=== PATIENT | female | born 1960 | race Caucasian/White ===

== ENCOUNTER 2017-03-25 17:34 | Emergency (ER) | payer SELFPAY ==
--- NOTE | 2017-03-25 19:24 | RAD ---
TWO VIEW CHEST 03/25/17 INDICATION: Cough. FINDINGS: There is bilateral pleural fluid. Interstitial opacities of each lung are present and there are patc hy alveolar opacities involving the right lung in a perihilar distribution in the left lower lung. T he cardiac silhouette and pulmonary vasculature are prominent. IMPRESSION: 1. Findings most consistent with decompensated CHF. Alveolar and interstitial opacities may rel ate to edema, although superimposed pneumonia not excluded. 2. Bilateral pleural effusions are present. Continued followup to resolution is recommended. POS: [facility]
== END 2017-03-25 20:02 | disposition home or self-care (01) ==
LOC: ERS 17:34
DX: J18.9 Pneumonia, unspecified organism (principal); I11.0 Hypertensive heart disease with heart failure; I50.9 Heart failure, unspecified; E03.9 Hypothyroidism, unspecified; F41.9 Anxiety disorder, unspecified
CPT/HCPCS: 71020; 94640; J7620

== ENCOUNTER 2017-05-04 14:24 | Inpatient (IN) | payer OTHER, SELFPAY ==
[2017-05-04 15:14] LABS: Bilirubin Negative (Negative); Blood, Urine Negative (Negative); Glucose, Urine (Dipstick) Negative (Negative); Ketone, Urine Negative (Negative); Nitrite Negative (Negative); Protein, Urine (Dipstick) Negative (Neg-Trace)
--- NOTE | 2017-05-04 15:20 | RAD ---
CHEST ONE VIEW: History: Cough. Rheumatoid arthritis. Comparison: 03-25-17 FINDINGS: Cardiac silhouette remains magnified and enlarged. Pulmonary vasculature is slightly less engorged th an on the previous exam. Mediastinum is midline. Patchy infiltrate at the left base and left pleural fluid have improved slightly. IMPRESSION: Pulmonary edema is less pronounced than on the 03-25-17 study. No new abnormalities are demonstrated. POS: [facility]
[2017-05-04 15:56] LABS: #Eosinphils 0.1 thou/uL (0.0-0.7); #Lymphocytes 1.1 thou/uL (1.20-3.40); #Monocytes 0.8 thou/uL (0.11-0.59); #Neutrophils 5.6 thou/uL (1.40-6.50); %Basophils 0.2 % (0.0-1.0); %Eosinophils 1.6 % (0.0-10.0); %Lymphocytes 14.5 % (21.0-51.0); %Monocytes 10.2 % (0.0-10.0); Hematocrit 27.8 % (36.0-47.0); Mean Platelet Volume 7.6 fL (7.4-10.4); Red Blood Cell (RBC) Count 3.29 mill/uL (4.20-5.40); White Blood Cell (WBC) Count 7.7 thou/uL (4.8-10.8)
[2017-05-04 16:19] LABS: ALT (SGPT) 13 U/L (8-55); AST (SGOT) 16 U/L (5-34); Alkaline Phosphatase 85 U/L (40-150); Anion Gap 14 mmol/L (10-20); BUN (Urea Nitrogen) 17 mg/dL (9.8-20.1); Bilirubin, Total 0.4 mg/dL (0.2-1.2); CK (CPK) 60 U/L (29-168); Calc. Creatinine Clearance 0 mL/min (70-130); Carbon Dioxide 25 mmol/L (22-29); Chloride 105 mmol/L (98-107); Estimated GFR-MDRD 82; Globulin 4.1 g/dL (2.4-3.5); Lipase 10 U/L (8-78); Protein, Total 7.5 g/dL (6.0-8.3)
[2017-05-04 16:23] LABS: Troponin I 0.024 ng/mL (< 0.028)
[2017-05-04] MEDS ORDERED: traMADol HCl 50 MG TAB ONE (20:03)
--- NOTE | 2017-05-04 20:56 | CT ---
CT BRAIN 05/04/17 PROVIDED CLINICAL HISTORY: Dizziness. FINDINGS: The ventricular system appears normal in size and morphology. There is no evidence for intracranial h emorrhage or mass effect. Postoperative changes involving the right mastoid air cells and middle/exte rnal ear demonstrated with nonspecific soft tissue density seen within a portion of the middle ear. E xtracranial soft tissues and osseous structures appear otherwise unremarkable. IMPRESSION: No evidence for intracranial hemorrhage or mass effect. POS: [facility]
[2017-05-04] MEDS ORDERED: Furosemide 40 MG TAB PO SCH ×2 (21:30→21:39)
[2017-05-04] MEDS ORDERED: Potassium Chloride 20 MEQ TAB PO SCH (21:31)
[2017-05-04 21:57] LABS: Iron 22 ug/dL (50-170)
[2017-05-04] MEDS ORDERED: Furosemide 40 MG/4 ML VIAL SLOW IVP SCH (22:00)
[2017-05-04 22:30] LABS: Magnesium 1.7 mg/dL (1.6-2.6); Phosphorus 4.1 mg/dL (2.3-4.7)
[2017-05-04 22:41] LABS: Amphetamine Not Detected (NotDetected); Methamphetamine Not Detected (NotDetected)
[2017-05-04 22:42] LABS: Methadone Not Detected (NotDetected)
[2017-05-04 22:54] LABS: Troponin I 0.021 ng/mL (< 0.028)
[2017-05-04] MEDS ORDERED: Levothyroxine Sodium 100 MCG TAB PO SCH (23:15)
[2017-05-05 00:48] LABS: #Eosinphils 0.2 thou/uL (0.0-0.7); #Lymphocytes 1.5 thou/uL (1.20-3.40); #Monocytes 0.9 thou/uL (0.11-0.59); #Neutrophils 5.8 thou/uL (1.40-6.50); %Basophils 0.5 % (0.0-1.0); %Eosinophils 2.8 % (0.0-10.0); %Lymphocytes 17.6 % (21.0-51.0); %Monocytes 10.5 % (0.0-10.0); Hematocrit 27.5 % (36.0-47.0); Mean Platelet Volume 7.3 fL (7.4-10.4); Red Blood Cell (RBC) Count 3.26 mill/uL (4.20-5.40); White Blood Cell (WBC) Count 8.5 thou/uL (4.8-10.8)
[2017-05-05 01:15] LABS: Anion Gap 12 mmol/L (10-20); BUN (Urea Nitrogen) 16 mg/dL (9.8-20.1); Calc. Creatinine Clearance 8 mL/min (70-130); Calcium 9.1 mg/dL (7.8-10.44); Carbon Dioxide 27 mmol/L (22-29); Chloride 105 mmol/L (98-107); Estimated GFR-MDRD 81
--- NOTE | 2017-05-05 01:19 | HP-2 ---
CODE STATUS: FULL. PRIMARY CARE PHYSICIAN: Misbah melgar. ATTENDING PHYSICIAN: Kane Gill MD RESIDENT: Juanita Nava DO CHIEF COMPLAINT: Shortness of breath and dizziness. HISTORY OF PRESENT ILLNESS: This is a 56-year-old female with past medical history significant for recently diagnosed congestive heart failure, hypothyroidism, hypertension, rheumatoid arthritis, and anxiety that presents with shortness of breath and dizziness. The patient was diagnosed with congestive heart failure around at an outside facility. Of note, two weeks ago, she started having intermittent dizziness, over the last couple of days, had some difficulty walking secondary to this dizziness. She states that it feels as though the room is spinning and nothing has helped resolve the vertigo. The patient does endorse shortness of breath with orthopnea, paroxysmal nocturnal dyspnea, and cough that is nonproductive. She was seen in the emergency department around time and at that time, she was given Lasix for her congestive heart failure. She has been taking her Lasix 20 mg daily since that time; however, the patient does endorse that she has been out of her medications for her other chronic conditions for the past year. The dizziness is worsened by movements. PAST MEDICAL HISTORY: 1. Congestive heart failure. 2. Hypothyroidism. 3. Hypertension. 4. Rheumatoid arthritis. 5. Anxiety. PAST SURGICAL HISTORY: 1. . 2. Appendectomy. 3. Right ear surgery. ALLERGIES: 1. CODEINE. 2. SULFA. 3. LISINOPRIL. 4. PENICILLIN. MEDICATIONS: 1. Enbrel 50 mg per mL subcutaneously q. week. 2. Atorvastatin 40 mg daily. 3. Losartan 100 mg daily. 4. Metoprolol tartrate 50 mg b.i.d. 5. Cyclobenzaprine 10 mg daily. 6. Pantoprazole 40 mg daily. 7. Oxybutynin XR 5 mg b.i.d. 8. Sertraline 50 mg daily. 9. Levothyroxine 112 mcg daily. 10. Ventolin HFA 180 mcg q.4 hours as needed. 11. Lasix 20 mg daily. 12. CoQ10 100 mg daily. 13. Turmeric root extract 500 mg b.i.d. 14. Multivitamin daily. Of note, the patient has not been taking the majority of these medications, I cannot verify the doses or names of the medications. This list was obtained from prior medication list. FAMILY HISTORY: Noncontributory. SOCIAL HISTORY: The patient denies smoking, alcohol, or drug use. REVIEW OF SYSTEMS: A 12 point review of systems was performed and all were negative aside except as listed in the HPI and as indicated below. The patient does endorse a 10-pound weight loss over the past couple of months and associated changes in appetite to include decrease in taste as well as some early satiety. The patient does endorse fatigue and eye pain. She states that she has aneurysms behind the eyes that have been evaluated in the past. The patient also endorses nasal congestion, rhinorrhea, dry cough, shortness of breath, exercise intolerance. She also says she has some intermittent chest discomfort associated with jaw pain. She is not having it currently. She states that the chest pain does come and go. Patient also endorses edema, paroxysmal nocturnal dyspnea, and palpitations. The patient endorses nausea without associated vomiting. The patient is currently menopausal. The patient has diffuse musculoskeletal pain associated with her rheumatoid arthritis. The patient also endorses depression. PHYSICAL EXAMINATION: VITAL SIGNS: Blood pressure 142/98, pulse 88, respiration rate 23, T-max 97.8, pulse ox 98% on room air. Current weight 60 kilograms. GENERAL: The patient is alert and oriented x3, in no acute distress. Well- developed, well-nourished, appropriately interactive. EYES: Pupils equally round and reactive to light and accommodation. Extraocular muscles are intact. Conjunctivae within normal limits. ENT: Nasal mucosa within normal limits. NECK: Supple, without lymphadenopathy. CARDIOVASCULAR: Regular rate and rhythm. No murmurs. Radial pulses 2+. Pedal pulses 2+. RESPIRATORY: Normal respiratory effort, no retractions. Patient does have some very faint rales in the posterior bases bilaterally. SKIN: Warm and dry without cyanosis or lesions. ABDOMEN: Soft, diffusely tender. Bowel sounds positive in all 4 quadrants. No masses or distention. EXTREMITIES: No clubbing, cyanosis, or edema. MUSCULOSKELETAL: Structure within normal limit. Tone within normal limit. NEUROLOGIC: No focal deficits. GCS 15. PSYCHIATRIC: Appropriate. LABORATORY AND DIAGNOSTIC FINDINGS: 1. CBC reveals white blood cell count 7.7, hemoglobin 8.6, hematocrit 27.8, platelet 412. 2. BMP reveals sodium 141, potassium 3.0, chloride 105, bicarb 25, BUN 17, creatinine 0.73 and glucose of 109. 3. CK 60. 4. CK-MB 1.8, troponin 0.24. 5. BNP 2814. 6. Blood type O positive, antibody negative. 7. UA negative. 8. Chest x-ray: Pulmonary edema, stable. 9. Brain CT, no evidence of intracranial hemorrhage or mass effect. ASSESSMENT AND PLAN: This is a 56-year-old female who was recently diagnosed with congestive heart failure, presents with shortness of breath and dizziness. 1. Mild congestive heart failure exacerbation. The patient was admitted to telemetry. CHF was diagnosed at an outside facility last month. We will obtain echocardiogram for records. The patient was placed on strict I's and O' s and was given 40 mg of p.o. Lasix x1. We will restart her on her home medications tomorrow. The patient does not look acutely decompensated. Continue to monitor her fluid status. Her BNP was in the 1999s. We will restart patient on medications for congestive heart failure. 2. Hypokalemia. We will replace potassium. 3. Anemia, normocytic. Obtain serum ferritin, iron, TIBC. We will monitor with a.m. CBC. 4. Vertigo, this is likely benign paroxysmal positional vertigo. We will attempt a Cory-Hallpike maneuver to diagnose and Slade's maneuver to treat. If this does not work, we can give the patient meclizine as needed for dizziness. PT and OT to evaluate the patient for gait instability. The patient was put on fall precautions. 5. Rheumatoid arthritis. The patient has been off medications for the past year. She was given tramadol for pain. The patient is to follow with primary care provider to restart rheumatoid arthritis medications. 6. Hypothyroidism. TSH level was checked, which was elevated, we will restart patient on levothyroxine. 7. Hypertension. The patient's blood pressure appears to be well controlled. We will restart her on low dose of blood pressure medications. DISPOSITION AND LENGTH OF HOSPITAL STAY: Two days. Symptomatic medication will be provided. History and physical exam as well as management discussed with Kane Gill. REI
[2017-05-05] MEDS: Acetaminophen 325 MG TAB PO PRN ×4 (02:39→22:19)
[2017-05-05] MEDS: Ondansetron ODT 4 MG TAB PO PRN ×3 (05:16→22:19)
[2017-05-05] MEDS: Levothyroxine Sodium 100 MCG TAB PO SCH (05:17)
[2017-05-05] MEDS ORDERED: Potassium Chloride 20 MEQ TAB PO SCH (08:30)
--- NOTE | 2017-05-05 08:48 | PDOC.FM ---
- Subjective Subjective: Patient reports DRAKE for about 2 months. Was told she has heart failure and apparently worked up in [facility] a month ago but did not actually stay in hospital. Has been off all her meds due to finances for a year. States prior to getting lasix a month ago, her legs were very swollen. She also reports dizziness which is her main concern for about 2 weeks. She states last night after the nazia maneuver, she felt better but then bent over and got dizzy again last night. She reports taking 800 mg of ibuprofen every 6 hours for about a month recently for her RA. The last couple days she reports epigastric abdominal pain, worse when sitting up. Denies hematemesis or dark tarry stools. Denies blood in stool. - Objective Vital Signs & Weight: Vital Signs (12 hours) Temp Pulse Resp BP Pulse Ox 05/05/17 08:00 98.3 F 97 20 136/97 H 93 L 05/05/17 03:50 98.5 F 100 16 137/90 98 05/04/17 23:58 98.6 F 100 16 144/93 H 95 05/04/17 21:31 98.2 F 90 16 97 Weight Weight 62.414 kg I&O: 05/04/17 05/05/17 05/06/17 06:59 06:59 06:59 Intake Total 460 Balance 460 Result Diagrams: 05/05/17 00:41 05/05/17 00:41 <Gabriela Will - Last Filed: 05/05/17 09:09> - Objective Vital Signs & Weight: Vital Signs (12 hours) Temp Pulse Resp BP Pulse Ox 05/05/17 08:00 98.3 F 97 20 136/97 H 93 L 05/05/17 03:50 98.5 F 100 16 137/90 98 05/04/17 23:58 98.6 F 100 16 144/93 H 95 Weight Weight 62.414 kg I&O: 05/04/17 05/05/17 05/06/17 06:59 06:59 06:59 Intake Total 460 Balance 460 Result Diagrams: 05/05/17 00:41 05/05/17 00:41 <Stanford Obrien - Last Filed: 05/05/17 11:34> Phys Exam - Physical Examination Constitutional: NAD Respiratory: no wheezing, no rales, no rhonchi, clear to auscultation bilateral no crackles Cardiovascular: RRR, no significant murmur Gastrointestinal: soft tender to palpation in epigstric region and LUQ Musculoskeletal: no edema, pulses present Neurological: non-focal, normal sensation, moves all 4 limbs <Gabriela Will - Last Filed: 05/05/17 09:09> Dx/Plan (1) CHF exacerbation Code(s): I50.9 - HEART FAILURE, UNSPECIFIED Status: Acute Plan: Patient not on any medications, improved with lasix 40 mg PO. ECHO pending. (2) Benign paroxysmal positional vertigo Code(s): H81.10 - BENIGN PAROXYSMAL VERTIGO, UNSPECIFIED EAR Status: Acute Plan: repeat nazia maneuver and recommended no bending for 48 hours. (3) HTN (hypertension) Code(s): I10 - ESSENTIAL (PRIMARY) HYPERTENSION Status: Acute Plan: restart losartan. (4) Hypothyroidism Code(s): E03.9 - HYPOTHYROIDISM, UNSPECIFIED Status: Acute Plan: weight based dose of leothyroxine restarted, pt will hvae to follow up to have levels checked. (5) Normocytic anemia Code(s): D64.9 - ANEMIA, UNSPECIFIED Status: Acute Plan: check FOBT. no report of blood loss. iron low, TIBC and ferritin normal. (6) Hypokalemia Code(s): E87.6 - HYPOKALEMIA Status: Acute Plan: replete. <Gabriela Will - Last Filed: 05/05/17 09:09> Attending Addendum - Attending Addendum I personally evaluated the patient and discussed the management with Dr. Will. I agree with the History, Examination, Assessment and Plan documented above with any addition or exceptions noted below. Anemia workup. restart therapy for hypothyroid. transfuse of necessary. Cardio workup. Vertigo tx with Nazia maneuver. <Stanford Obrien - Last Filed: 05/05/17 11:34>
[2017-05-05] MEDS ORDERED: Metoprolol Tartrate 50 MG TAB PO SCH (09:00)
[2017-05-05] MEDS ORDERED: Losartan Potassium 25 MG TAB PO SCH (09:00)
[2017-05-05] MEDS: Losartan Potassium 25 MG TAB PO SCH (09:09)
[2017-05-05] MEDS ORDERED: Ferrous Sulfate 325 MG TAB PO SCH (09:45)
[2017-05-05 11:34] LABS: Hematocrit 29.2 % (36.0-47.0); Mean Platelet Volume 7.7 fL (7.4-10.4); Red Blood Cell (RBC) Count 3.48 mill/uL (4.20-5.40); White Blood Cell (WBC) Count 8.2 thou/uL (4.8-10.8)
[2017-05-05] MEDS ORDERED: Metoprolol Tartrate 25 MG TAB PO SCH (11:45)
[2017-05-05 12:03] LABS: Band 3 % (5-11); Hypochromia SLIGHT = 6-15 cells (100X) (0-5/hpf); Neutrophil 76 % (42-75); Polychromasia SLIGHT = 2-3 cells (100X) (0-2/hpf); Reactive Lymphocytes 1 % (0-10); Tear Drops SLIGHT = 2-5 cells (100X) (0-1/hpf)
[2017-05-05] MEDS ORDERED: hydrALAZINE 20 MG/ML VIAL SLOW IVP PRN (13:59)
[2017-05-05] MEDS ORDERED: Communication Order-Pharmacy FS SCH (15:15)
[2017-05-05] MEDS ORDERED: Verapamil 5 MG/2 ML VIAL ONE (15:32)
[2017-05-05] MEDS ORDERED: Heparin 10,000 UNITS/1 ML VIAL ONE (15:32)
[2017-05-05] MEDS ORDERED: Nitroglycerin 100MG/250ML BOT 250 ML ONE (15:32)
[2017-05-05] MEDS ORDERED: Iopamidol 370 76% 100 ML VIAL ONE (15:43)
[2017-05-05] MEDS ORDERED: Ondansetron HCl/PF 4 MG/2 ML Vial ONE (15:57)
--- NOTE | 2017-05-05 15:58 | CON ---
DATE OF CONSULTATION: 05/05/2017 REASON FOR CONSULTATION: Acute systolic heart failure. HISTORY OF PRESENT ILLNESS: Ms. Delvalle is a 56-year-old woman, who states she has not been seen or evaluated by Cardiology in the past. She states she had a hospitalization here at [facility] due to heart failure. There was no history noted in the chart. She states she has woods d increased shortness of breath and chest tightness and pressure. No other associated ameliorating o r exacerbating factors present. She has also had chronic anemia. She has no recent overseas travels . PAST MEDICAL HISTORY: As above including hypothyroidism, hypertension, rheumatoid arthritis, anxiety disorder, , appendectomy, right ear surgery. ALLERGIES: CODEINE. MEDICATIONS: Enbrel, atorvastatin, losartan, metoprolol, cyclobenzaprine, pantoprazole, sertraline, levothyroxine, Ventolin, Lasix, CoQ10, multivitamin. FAMILY HISTORY: Negative. SOCIAL HISTORY: No current tobacco or alcohol use. REVIEW OF SYSTEMS: Ten point review of systems is reviewed and as above, otherwise negative. PHYSICAL EXAMINATION: VITAL SIGNS: Blood pressure 141/95, pulse 80, temperature 97.5. GENERAL: Patient is a pleasant female who is in no acute distress. The patient appears her stated a ge. NEUROLOGIC: The patient is alert and oriented times 3 with no focal neurologic deficits. HEENT: Sclerae without icterus. Mouth has moist mucous membranes with normal pallor. NECK: No JVD. Carotid upstroke brisk. No bruits bilaterally. LUNGS: Clear to auscultation with unlabored respirations. BACK: No scoliosis or kyphosis. CARDIAC: Regular rate and rhythm with normal S1 and S2. No S3 or S4 noted. No significant rubs, mu rmurs, thrills, or gallops noted throughout the precordium. PMI is not displaced. There is no gilberto ternal heave. ABDOMEN: Soft, nontender, nondistended. No peritoneal signs present. No hepatosplenomegaly. No ab normal striae. EXTREMITIES: 2+ femoral and 2+ dorsalis pedis pulses. No cyanosis, clubbing, or edema. SKIN: No gross abnormalities. PERTINENT LABORATORY DATA: Hemoglobin 8.9, creatinine 0.74, BNP greater than 2000, TSH 39. IMPRESSION: 1. Acute systolic heart failure. 2. Shortness of breath. 3. Hypothyroidism. RECOMMENDATIONS: Etiology to her current cardiomyopathy is unknown. Her recent echo did suggest a d ilated cardiomyopathy. Given the increased incidence of underlying coronary artery disease, recommen d coronary angiography. We will try to approach radially. This will be diagnostic only due to low h emoglobin. I would treat her hypothyroidism as well. This may be contributing to her current demise . We would also recommend a lipase prior to discharge. She will also need beta-bill therapy in a ddition to ROSA MARIA inhibitor treatment. I have discussed coronary angiography in full detail with Ms. Elke jang. The risks of the procedure were also discussed. The risks of the procedure include but are n ot limited to the following: , stroke, [place], need for emergency surgery, loss of limb, bleeding, and infection, as well as a reaction to the dye causing kidney failure and needing long-term dialysis . I also discussed the risks of PCI to include all of the above including coronary dissection and pe rforation in addition to acute stent thrombosis and restenosis. All questions about the procedure we re answered. Given the above, the patient agreed to proceed with coronary angiography and possible P CI. All questions were answered. Given the above, the patient agreed to proceed with above procedur e.
[2017-05-05] MEDS: Ferrous Sulfate 325 MG TAB PO SCH (16:25)
[2017-05-05] MEDS: Metoprolol Tartrate 50 MG TAB PO SCH (20:24)
[2017-05-05] MEDS: Atorvastatin Calcium 40 MG TAB PO SCH (20:25)
[2017-05-06] MEDS: Levothyroxine Sodium 100 MCG TAB PO SCH (05:21)
[2017-05-06] MEDS: Ondansetron ODT 4 MG TAB PO PRN ×3 (05:21→18:33)
[2017-05-06] MEDS: Acetaminophen 325 MG TAB PO PRN ×3 (05:21→18:33)
[2017-05-06 06:23] LABS: Hematocrit 25.4 % (36.0-47.0)
--- NOTE | 2017-05-06 07:17 | PRG ---
DATE OF SERVICE: 05/06/2017 Ms. Delvalle is doing well, no current complaints. She was recently diagnosed with a nonischemic card iomyopathy. PHYSICAL EXAMINATION: VITAL SIGNS: Blood pressure 128/97, pulse 81, temperature 97.6. LUNGS: Clear to auscultation. CARDIAC: Regular rate and rhythm. ABDOMEN: Soft, nontender, nondistended. EXTREMITIES: No edema. IMPRESSION: 1. Nonischemic cardiomyopathy. 2. Hypothyroidism. RECOMMENDATIONS: Continue beta bill therapy and ARB. I discussed LifeVest with patient. She sta jacque social work is working on Disability, but at this point from a financial standpoint cannot affor d the LifeVest. Otherwise, from my standpoint, it would be okay for discharge when okay with primary care team with close outpatient follow up.
[2017-05-06] MEDS: Metoprolol Tartrate 50 MG TAB PO SCH (08:35)
[2017-05-06] MEDS: Ferrous Sulfate 325 MG TAB PO SCH ×2 (08:35→16:21)
[2017-05-06] MEDS: Losartan Potassium 25 MG TAB PO SCH (08:36)
[2017-05-06] MEDS: Meclizine HCl 25 MG TAB PO PRN ×2 (08:36→18:33)
[2017-05-06 10:03] LABS: IRF 0.408 Ratio (0.163-0.362); Reticulocyte Count 3.4 % (0.5-1.5)
--- NOTE | 2017-05-06 11:43 | PDOC.FM ---
- Subjective Subjective: Patient doing about the same. Fatigue and DRAKE. Dizziness persistent. - Objective MAR Reviewed: Yes Vital Signs & Weight: Vital Signs (12 hours) Temp Pulse Resp BP Pulse Ox 05/06/17 07:51 97.7 F 80 20 143/93 H 98 05/06/17 04:00 97.6 F 81 20 128/97 H 97 05/05/17 23:52 98.4 F 73 18 108/78 93 L Weight Weight 62.233 kg I&O: 05/05/17 05/06/17 05/07/17 06:59 06:59 06:59 Intake Total 460 1989 200 Balance 460 1989 200 Result Diagrams: 05/06/17 06:02 05/05/17 00:41 <Gabriela Will - Last Filed: 05/06/17 11:41> - Objective Vital Signs & Weight: Vital Signs (12 hours) Temp Pulse Pulse Pulse Resp BP BP 05/06/17 15:10 97.8 F 76 16 05/06/17 12:00 97.5 F L 72 20 05/06/17 10:38 66 63 114/78 108/74 05/06/17 08:00 97.5 F L 72 20 05/06/17 07:51 97.7 F 80 20 BP Pulse Ox 05/06/17 15:10 118/85 92 L 05/06/17 12:00 104/76 99 05/06/17 10:38 05/06/17 08:00 05/06/17 07:51 143/93 H 98 Weight Weight 62.233 kg I&O: 05/05/17 05/06/17 05/07/17 06:59 06:59 06:59 Intake Total 460 1989 1170 Balance 460 19890 Result Diagrams: 05/06/17 06:02 05/06/17 09:30 <Emily Pierre - Last Filed: 05/06/17 18:36> Phys Exam - Physical Examination appears tired Respiratory: no wheezing, no rales, no rhonchi, clear to auscultation bilateral no crackles Cardiovascular: RRR, no significant murmur Gastrointestinal: soft, non-tender Musculoskeletal: no edema Neurological: non-focal, normal sensation, moves all 4 limbs Psychiatric: normal affect, A&O x 3 <Gabriela Will - Last Filed: 05/06/17 11:41> Dx/Plan (1) Diastolic heart failure of unknown etiology Code(s): I50.30 - UNSPECIFIED DIASTOLIC (CONGESTIVE) HEART FAILURE Status: Acute Plan: EF around 20-30%. non ischemic dilated cardiomyopathy. needs HF clinic. maximize medical mgmt, will cont on metoprolol and losartan. likely would benefit from transfusion and pending patient decision will transfuse 1 unit this afternoon. needs lifevest but if unable to obtain due to funding, will dc without. short term f/u with [facility] home tomorrow. (2) CHF exacerbation Code(s): I50.9 - HEART FAILURE, UNSPECIFIED Status: Acute Plan: improved, no fluid overload. see above. (3) Benign paroxysmal positional vertigo Code(s): H81.10 - BENIGN PAROXYSMAL VERTIGO, UNSPECIFIED EAR Status: Acute Plan: Recommend continued nazia maneuver and will educate family to assist. Explained to pt that this likely will not be resolved in the short term and can last up to 4 wks. (4) HTN (hypertension) Code(s): I10 - ESSENTIAL (PRIMARY) HYPERTENSION Status: Acute (5) Hypothyroidism Code(s): E03.9 - HYPOTHYROIDISM, UNSPECIFIED Status: Acute Plan: weight based dose of leothyroxine restarted, pt will hvae to follow up to have levels checked. (6) Normocytic anemia Code(s): D64.9 - ANEMIA, UNSPECIFIED Status: Acute Plan: hemolysis labs pending however this likely is 2/2 patients severe hypothyroidism. Will need cont outpatient followup and monitoring of hgb. Will transfuse one unit if patient agrees. (7) Hypokalemia Code(s): E87.6 - HYPOKALEMIA Status: Acute Plan: replete. <Gabriela Will - Last Filed: 05/06/17 11:41> Attending Addendum - Attending Addendum I personally evaluated the patient and discussed the management with Dr. Will at 11 am I agree with the History, Examination, Assessment and Plan documented above with any addition or exceptions noted below. New Onset Systolic CHF, non-ischemic, with EF 20-30%. Most likely d/c tomorrow on Bblocker and ARB. Cardiology recommended lifevest but patient uninsured- will await CM to see if assistance available Hypothyroidism- on synthroid. Discussed in detail with patient today about the importance of taking her medication to improve her heart function and her anemia and overall fatigue Normocytic anemia- discussed with patient that since her Hgb<8 and she has CHF that she would most likely benefit from a 1U PRBC transfusion. Discussed risks and benefits and she wanted to discuss with family prior to deciding. <Emily Pierre - Last Filed: 05/06/17 18:36>
[2017-05-06 13:13] LABS: Anion Gap 15 mmol/L (10-20); BUN (Urea Nitrogen) 18 mg/dL (9.8-20.1); Calc. Creatinine Clearance 79 mL/min (70-130); Calcium 9.1 mg/dL (7.8-10.44); Carbon Dioxide 23 mmol/L (22-29); Chloride 105 mmol/L (98-107); Estimated GFR-MDRD 76
[2017-05-06] MEDS ORDERED: Mag-Al 1200 mg/1200 mg/30 ML UDCUP PO PRN (15:24)
[2017-05-06] MEDS ORDERED: Acetaminophen 500 MG TAB PO SCH (15:30)
[2017-05-06] MEDS: Carvedilol 3.125 MG TAB PO SCH (16:21)
[2017-05-06] MEDS: Atorvastatin Calcium 40 MG TAB PO SCH (20:33)
[2017-05-07] MEDS: Acetaminophen 325 MG TAB PO PRN ×3 (00:34→15:04)
[2017-05-07] MEDS: Levothyroxine Sodium 100 MCG TAB PO SCH (05:17)
[2017-05-07 05:26] LABS: #Basophils 0.1 thou/uL (0.0-0.2); #Eosinphils 0.2 thou/uL (0.0-0.7); #Lymphocytes 1.8 thou/uL (1.20-3.40); #Monocytes 0.8 thou/uL (0.11-0.59); #Neutrophils 4.4 thou/uL (1.40-6.50); %Basophils 0.8 % (0.0-1.0); %Eosinophils 2.8 % (0.0-10.0); %Lymphocytes 24.4 % (21.0-51.0); %Monocytes 11.6 % (0.0-10.0); Hematocrit 24.9 % (36.0-47.0); Mean Platelet Volume 7.7 fL (7.4-10.4); Red Blood Cell (RBC) Count 2.93 mill/uL (4.20-5.40); White Blood Cell (WBC) Count 7.2 thou/uL (4.8-10.8)
[2017-05-07 05:35] LABS: Anion Gap 13 mmol/L (10-20); BUN (Urea Nitrogen) 20 mg/dL (9.8-20.1); Calc. Creatinine Clearance 75 mL/min (70-130); Calcium 8.9 mg/dL (7.8-10.44); Carbon Dioxide 27 mmol/L (22-29); Chloride 103 mmol/L (98-107); Estimated GFR-MDRD 71
[2017-05-07] MEDS: Ondansetron ODT 4 MG TAB PO PRN (08:12)
[2017-05-07] MEDS: Ferrous Sulfate 325 MG TAB PO SCH ×2 (08:12→16:39)
[2017-05-07] MEDS: Carvedilol 3.125 MG TAB PO SCH ×2 (08:12→16:39)
[2017-05-07] MEDS: Losartan Potassium 25 MG TAB PO SCH (08:12)
[2017-05-07] MEDS: Meclizine HCl 25 MG TAB PO PRN ×2 (08:12→16:39)
--- NOTE | 2017-05-07 09:05 | PDOC.FM ---
- Subjective Subjective: Patient feeling run down and tired. She declined a blood transfusion yesterday. She has been up and walking around some yesterday. - Objective MAR Reviewed: Yes Vital Signs & Weight: Vital Signs (12 hours) Temp Pulse Resp BP Pulse Ox 05/07/17 07:05 97.6 F 90 16 150/100 H 93 L 05/07/17 04:23 98.4 F 87 16 136/91 H 92 L 05/07/17 00:24 98.5 F 84 16 127/90 92 L Weight Weight 62.732 kg I&O: 05/06/17 05/07/17 05/08/17 06:59 06:59 06:59 Intake Total 1989 1329 Balance 1989 1330 Result Diagrams: 05/07/17 04:28 05/07/17 04:28 <Gabriela Will - Last Filed: 05/07/17 09:03> - Objective Vital Signs & Weight: Vital Signs (12 hours) Temp Pulse Pulse Pulse Pulse Resp BP 05/07/17 15:54 97.6 F 81 16 05/07/17 15:12 97.6 F 83 20 05/07/17 14:30 81 81 126/88 05/07/17 13:29 98.2 F 81 16 05/07/17 13:13 98.2 F 81 16 05/07/17 11:10 97.7 F 80 16 05/07/17 08:00 97.6 F 90 16 05/07/17 07:05 97.6 F 90 16 BP BP BP Pulse Ox 05/07/17 15:54 115/91 H 98 05/07/17 15:12 115/91 H 100 05/07/17 14:30 121/87 05/07/17 13:29 124/87 92 L 05/07/17 13:13 127/92 H 93 L 05/07/17 11:10 125/78 93 L 05/07/17 08:00 05/07/17 07:05 150/100 H 93 L Weight Weight 62.732 kg Most Recent Monitor Data Heart Rate from ECG 94 I&O: 05/06/17 05/07/17 05/08/17 06:59 06:59 06:59 Intake Total 1989 1330 1360 Balance 19890 1360 Result Diagrams: 05/07/17 04:28 05/07/17 04:28 <IgnacioEmily Chandler - Last Filed: 05/07/17 19:01> Phys Exam - Physical Examination appears tired HEENT: moist MMs Respiratory: no wheezing, no rales, no rhonchi, clear to auscultation bilateral Cardiovascular: RRR, no significant murmur Gastrointestinal: soft, non-tender Musculoskeletal: no edema Deviation from normal: affect consistent with current medical state <Gabriela Will - Last Filed: 05/07/17 09:03> Dx/Plan (1) Diastolic heart failure of unknown etiology Code(s): I50.30 - UNSPECIFIED DIASTOLIC (CONGESTIVE) HEART FAILURE Status: Acute Plan: EF around 20-30%. non ischemic dilated cardiomyopathy. Follow up outpt with HF clinic. maximize medical mgmt, will cont on coreg and losartan. Increased dose of coreg due to elevated blood pressure, will need to be monitored outpt. likely would benefit from transfusion and again offered to pt, I will discuss this with her son. needs lifevest but if unable to obtain due to funding, will dc without. short term f/u with [facility] scheduled on 05/11. Likely home later today. (2) CHF exacerbation Code(s): I50.9 - HEART FAILURE, UNSPECIFIED Status: Acute Plan: improved, no fluid overload. see above. (3) Benign paroxysmal positional vertigo Code(s): H81.10 - BENIGN PAROXYSMAL VERTIGO, UNSPECIFIED EAR Status: Acute Plan: Recommend continued nazia maneuver and will educate family to assist. Explained to pt that this likely will not be resolved in the short term and can last up to 4 wks. (4) HTN (hypertension) Code(s): I10 - ESSENTIAL (PRIMARY) HYPERTENSION Status: Acute Plan: losartan and coreg. not at goal but will require outpt titration. (5) Hypothyroidism Code(s): E03.9 - HYPOTHYROIDISM, UNSPECIFIED Status: Acute Plan: cont levothyroxine and follow up outpt. (6) Normocytic anemia Code(s): D64.9 - ANEMIA, UNSPECIFIED Status: Acute Plan: LDH slightly elevated but haptoglobin also elevated, not consistent with hemolysis. Retic production index not adequate but suspect may be 2/2 hypothyroidism. Recommend a blood transfusion, to date patient has declined this but will discuss with son. She will need follow up outpt and cont monitoring of hgb. Will DC on iron BID as iron was low but TIBC and ferritin not c/w iron def anemia. (7) Hypokalemia Code(s): E87.6 - HYPOKALEMIA Status: Resolved (8) Depression Code(s): F32.9 - MAJOR DEPRESSIVE DISORDER, SINGLE EPISODE, UNSPECIFIED Status : Acute Plan: Patient to dont on her prior medication, zoloft. Discussed this with patient who wants to cont medication. <Gabriela Will - Last Filed: 05/07/17 09:03> Attending Addendum - Attending Addendum I personally evaluated the patient and discussed the management with Dr. Will at 830 am. I agree with the History, Examination, Assessment and Plan documented above with any addition or exceptions noted below. Systolic CHF with EF 20-30%- home on coreg and losartan. Hypothyroid- synthroid. Repeat TSH in 4-6 weeks Normocytic anemia of chronic disease- patient initially refused transfusion but now wants to proceed. 1U PRBC prior to discharge <Emily Pierre - Last Filed: 05/07/17 19:01>
[2017-05-07 15:54] VITALS: TEMP 97.6
[2017-05-07 16:11] VITALS: BP 126/88
--- NOTE | 2017-05-10 19:19 | DIS-2 ---
DATE OF ADMISSION: 05/04/2017 DATE OF DISCHARGE: 05/07/2017 ADMITTING ATTENDING: Dr. Stanford Obrien. DISCHARGE ATTENDING: Dr. Emily Pierre. CONSULTATIONS: Were made to Dr. Ilya Garcia. PRIMARY DIAGNOSES: 1. New onset diastolic, systolic heart failure with an ejection fraction of 20%. 2. Severe hypothyroidism. 3. Severe normocytic hypochromic anemia likely secondary to #2. 4. Hypertension, benign paroxysmal positional vertigo. 5. Hypokalemia, resolved. 6. Depression. 7. Rheumatoid arthritis. PROCEDURES: On 05/04/2017 with a cardiac catheterization showing nonischemic cardiomyopathy and an e jection fraction of 20%. One unit packed red blood cells transfused on 05/07/2017. IMAGING: Echocardiogram was performed on 05/04/2017 which showed ejection fraction of 25-30%, left v entricular size moderately increased, restricted filling pattern suggesting restricted diastolic func tion, left atrium moderately dilated, severe mitral regurgitation, moderate tricuspid regurgitation. DISCHARGE MEDICATION: 1 Lasix 20 mg p.o. daily. 2. Coreg 3.125 mg p.o. b.i.d. 3. Synthroid 100 mcg p.o. daily. 4. Losartan 25 mg p.o. daily. 5. Meclizine 25 mg p.o. q.8 hours p.r.n. 6. Sertraline 50 mg p.o. daily. HISTORY OF PRESENT ILLNESS/HOSPITAL COURSE: This is a 56-year-old white female with past medical his tory of hypothyroidism, rheumatoid arthritis and hypertension who had been off all of her medications for at least a year due to funding. The patient presented to the ER with complaints of severe short ness of breath and fatigue and was found to have a new diagnosis of heart failure with reduced ejecti on fraction to 20%. The patient underwent a cardiac catheterization which did not show ischemic card iomyopathy. It is unknown what exactly is the cause of her severe heart failure; however, contributi ng factor may be due to her severe hypothyroidism. The patient was placed on Coreg as well as losart an due to an ROSA MARIA allergy and was going to undergo medical management and follow up for repeat echocar diogram with audio video mechanic in 3-6 months. The patient was also offered a LifeVest; however, due to fi nancial reasons, she was unable to obtain this and was discharged without it. In regards to patient's hypothyroidism, her TSH upon admission was 39 and her free T4 was 0.62. The patient was placed back on her Synthroid 100 mcg. This will be titrated in the outpatient setting an d has been explained to the patient. The patient had admitting hemoglobin of 8.7 and dropped as low as 7.5 on the last day of hospital adm ission secondary to patient's severe heart failure. She has offered a transfusion, which she accepte d and received on the date of her discharge. Her anemia was thought to be secondary to her severe hy pothyroidism. A workup for hemolysis was negative and patient also did not have an adequate reticulo cyte production index and was thought to likely be due to both nutrition as well as her hypothyroidis m. The patient also was experiencing severe vertigo during her hospitalization which did improve after a n Slade maneuver. This was repeated and did not obtain as much relief; however, it did improve throu ghout her hospital stay and it was explained to the patient that this may take time and the Slade man euver should be repeated multiple times a day every next several weeks. Patient high blood pressure was well controlled throughout her hospitalization. The patient did expe rience some hypokalemia during her hospitalization repleted. The patient exhibited signs of depressi on and was restarted on her sertraline drop hospitalization. The patient was set up for a followup in [facility] on 05/11/2017 and the importance of this followu p was stressed to the patient. All of the above was also discussed with the patient's son who is medical power of deputy attorney general. DISPOSITION: Stable. DISCHARGE INSTRUCTIONS: 1. Location: Home. 2. Activity: As tolerated. 3. Diet: Heart healthy. 4. Follow up at [facility] on 05/11/2017.
== END 2017-05-07 18:49 | disposition home or self-care (01) | DRG 287 ==
LOC: ERS 14:24 → 2SE 17:30
PROVIDERS: ADMIT Family Medicine; ATTEND Family Medicine
PROC: 4A023N7 Measurement of Cardiac Sampling and Pressure, Left Heart, Percutaneous Approach (ICD-10-PCS; principal; 2017-05-05)
PROC: B2111ZZ Fluoroscopy of Multiple Coronary Arteries using Low Osmolar Contrast (ICD-10-PCS; 2017-05-05)
PROC: B2151ZZ Fluoroscopy of Left Heart using Low Osmolar Contrast (ICD-10-PCS; 2017-05-05)
PROC: 30233N1 Transfusion of Nonautologous Red Blood Cells into Peripheral Vein, Percutaneous Approach (ICD-10-PCS; 2017-05-07)
DX: I11.0 Hypertensive heart disease with heart failure (principal); I42.0 Dilated cardiomyopathy; I08.1 Rheumatic disorders of both mitral and tricuspid valves; F32.9 Major depressive disorder, single episode, unspecified; E03.9 Hypothyroidism, unspecified; M06.9 Rheumatoid arthritis, unspecified; F41.9 Anxiety disorder, unspecified; Z88.5 Allergy status to narcotic agent; Z88.0 Allergy status to penicillin; Z88.2 Allergy status to sulfonamides; Z88.8 Allergy status to other drugs, medicaments and biological substances; E87.6 Hypokalemia; H81.10 Benign paroxysmal vertigo, unspecified ear; D63.8 Anemia in other chronic diseases classified elsewhere; I50.41 Acute combined systolic (congestive) and diastolic (congestive) heart failure
CPT/HCPCS: 36415; 36430; 70450; 71010; 80048; 80053; 80061; 80306; 81003; 82553; 82728; 83010; 83540; 83550; 83615; 83690; 83735; 83880; 84100; 84439; 84443; 84484; 85014; 85018; 85025; 85046; 85049; 85060; 86850; 86880; 86900; 86901; 93005; 93306; 93458; 94760; A4216; C1769; G8978-GP-CK; G8979-GP-CI; G8987-GO-CL; G8988-GO-CJ; J1644; J2405; P9016; Q0162

== ENCOUNTER 2017-11-30 14:44 | Emergency (ER) | payer OTHER, SELFPAY ==
[2017-11-30] MEDS ORDERED: traMADol HCl 50 MG TAB ONE (16:12)
[2017-11-30 16:29] LABS: #Eosinphils 0.2 thou/uL (0.0-0.7); #Lymphocytes 1.7 thou/uL (1.20-3.40); #Neutrophils 6.1 thou/uL (1.40-6.50); %Eosinophils 2.7 % (0.0-10.0); %Lymphocytes 18.6 % (21.0-51.0); %Monocytes 11.4 % (0.0-10.0); %Neutrophils 67.2 % (42.0-75.0); Hemoglobin 7.5 g/dL (12.0-16.0); Mean Corpuscular HGB CONC 34.4 g/dL (32.0-36.0); Mean Corpuscular Hemoglobin 29.2 pg (27.0-31.0); Mean Corpuscular Volume 85.1 fL (78.0-98.0); Mean Platelet Volume 5.8 fL (7.4-10.4); Platelet Count 561 thou/uL (130-400); RBC Distribution Width 13.4 % (11.5-14.5); Red Blood Cell (RBC) Count 2.57 mill/uL (4.20-5.40); White Blood Cell (WBC) Count 9.1 thou/uL (4.8-10.8)
[2017-11-30 16:53] LABS: ALT (SGPT) Less than 7 U/L (8-55); AST (SGOT) 11 U/L (5-34); Albumin 3.3 g/dL (3.5-5.0); Alkaline Phosphatase 90 U/L (40-150); Anion Gap 14 mmol/L (10-20); BUN (Urea Nitrogen) 15 mg/dL (9.8-20.1); Bilirubin, Total 0.4 mg/dL (0.2-1.2); Calc. Creatinine Clearance 0 mL/min (70-130); Calcium 9.4 mg/dL (7.8-10.44); Carbon Dioxide 27 mmol/L (22-29); Chloride 102 mmol/L (98-107); Estimated GFR-MDRD 88; Globulin 4.3 g/dL (2.4-3.5); Glucose 86 mg/dL (70-105); Potassium 3.3 mmol/L (3.5-5.1); Protein, Total 7.6 g/dL (6.0-8.3); Sodium 140 mmol/L (136-145)
[2017-11-30 16:54] LABS: CKMB 0.3 ng/mL (0-6.6); Troponin I Less than 0.010 ng/mL (< 0.028)
--- NOTE | 2017-11-30 17:00 | RAD ---
CHEST ONE VIEW: 11/30/17 HISTORY: Dyspnea. COMPARISON: 05/04/17. FINDINGS: Cardiac silhouette is magnified by projection. Pulmonary vasculature unremarkable. Mediastinum midlin e. No lobar consolidation or evidence of pneumothorax. The mac operator leads overlie the chest. IMPRESSION: No active cardiopulmonary abnormalities are demonstrated. POS: [facility]
[2017-11-30] MEDS ORDERED: Ondansetron ODT 4 MG TAB ONE (17:04)
== END 2017-11-30 19:02 | disposition home or self-care (01) ==
LOC: ERS 14:44
DX: M06.9 Rheumatoid arthritis, unspecified (principal); G89.29 Other chronic pain; R07.9 Chest pain, unspecified; E03.9 Hypothyroidism, unspecified; I11.0 Hypertensive heart disease with heart failure; I50.9 Heart failure, unspecified; F41.9 Anxiety disorder, unspecified; Z79.899 Other long term (current) drug therapy
CPT/HCPCS: 36415; 71045; 80053; 82553; 83880; 84484; 85025; 85652; 86140; 93005; 96372; J2270; Q0162

== ENCOUNTER 2018-02-21 23:23 | Observation (INO) | payer MEDICAID, OTHER ==
[2018-02-22 00:34] LABS: #Eosinphils 0.1 thou/uL (0.0-0.7); #Lymphocytes 2.2 thou/uL (1.20-3.40); #Monocytes 0.8 thou/uL (0.11-0.59); #Neutrophils 7.7 thou/uL (1.40-6.50); %Basophils 0.4 % (0.0-1.0); %Eosinophils 0.5 % (0.0-10.0); %Monocytes 7.4 % (0.0-10.0); %Neutrophils 71.8 % (42.0-75.0); Hemoglobin 9.7 g/dL (12.0-16.0); Mean Corpuscular HGB CONC 31.8 g/dL (32.0-36.0); Mean Corpuscular Hemoglobin 25.6 pg (27.0-31.0); Mean Corpuscular Volume 80.4 fL (78.0-98.0); Mean Platelet Volume 6.7 fL (7.4-10.4); Platelet Count 566 thou/uL (130-400); Red Blood Cell (RBC) Count 3.79 mill/uL (4.20-5.40); White Blood Cell (WBC) Count 10.8 thou/uL (4.8-10.8)
[2018-02-22] MEDS ORDERED: HYDROcodone/Acetaminophen 5/325 mg Tablet ONE (00:47)
[2018-02-22 00:52] LABS: ALT (SGPT) 16 U/L (8-55); AST (SGOT) 11 U/L (5-34); Alkaline Phosphatase 104 U/L (40-150); Anion Gap 14 mmol/L (10-20); BUN (Urea Nitrogen) 11 mg/dL (9.8-20.1); Bilirubin, Total 0.2 mg/dL (0.2-1.2); Calc. Creatinine Clearance 0 mL/min (70-130); Calcium 9.4 mg/dL (7.8-10.44); Carbon Dioxide 29 mmol/L (22-29); Chloride 101 mmol/L (98-107); Estimated GFR-MDRD 70; Glucose 139 mg/dL (70-105); Sodium 141 mmol/L (136-145)
[2018-02-22 00:55] LABS: Potassium 2.7 mmol/L (3.5-5.1)
[2018-02-22 00:57] LABS: Troponin I Less than 0.010 ng/mL (< 0.028)
[2018-02-22] MEDS ORDERED: Potassium Chloride 20 MEQ TAB ONE (01:21)
[2018-02-22] MEDS ORDERED: Magnesium 2 GM/50 ML 2 GM in Premix Bag 1 BAG IVPB SCH (01:30)
[2018-02-22] MEDS ORDERED: Potassium Chloride 40 MEQ in Sodium Chloride 0.9% 250 ML 250 ML IVPB SCH (01:30)
[2018-02-22 04:39] VITALS: BMI 22.4
[2018-02-22 04:48] LABS: Troponin I Less than 0.010 ng/mL (< 0.028)
[2018-02-22 06:32] LABS: Troponin I Less than 0.010 ng/mL (< 0.028)
[2018-02-22 07:51] LABS: Anion Gap 14 mmol/L (10-20); BUN (Urea Nitrogen) 11 mg/dL (9.8-20.1); Calc. Creatinine Clearance 64 mL/min (70-130); Calcium 8.7 mg/dL (7.8-10.44); Carbon Dioxide 28 mmol/L (22-29); Chloride 103 mmol/L (98-107); Estimated GFR-MDRD 69; Glucose 159 mg/dL (70-105); Potassium 3.5 mmol/L (3.5-5.1); Sodium 141 mmol/L (136-145)
[2018-02-22] MEDS: Carvedilol 6.25 MG TAB PO SCH ×2 (08:51→17:33)
[2018-02-22] MEDS: traMADol HCl 50 MG TAB PO PRN ×2 (08:52→17:34)
[2018-02-22] MEDS ORDERED: Furosemide 40 MG TAB PO SCH (09:00)
[2018-02-22] MEDS ORDERED: Ferrous Sulfate 325 MG TAB PO SCH (09:00)
[2018-02-22] MEDS ORDERED: Losartan 25 MG TAB PO SCH (09:00)
[2018-02-22] MEDS ORDERED: predniSONE 20 MG TAB PO SCH (09:00)
[2018-02-22] MEDS ORDERED: Leflunomide 10 mg Tablet PO SCH (09:00)
[2018-02-22] MEDS ORDERED: Potassium Chloride 20 MEQ TAB PO SCH (10:45)
[2018-02-22 15:45] VITALS: BP 148/92; TEMP 98.4
--- NOTE | 2018-02-23 02:09 | HP ---
DATE OF ADMISSION: 02/22/2018 CHIEF COMPLAINT: Hypokalemia. HISTORY OF PRESENT ILLNESS: Ms. Delvalle is a 57-year-old, female with a past medical history of CHF, rheumatoid arthritis, hypertension, who has had a labwork done ordered by the distribution collection operator, which showed potassium of 2.7. The patient was told to go to the emergency room for further management. The patient does not have any shortness of breath, dizziness, or chest pain. No nausea or vomiting. The patient was found to have CHF a few months ago and was started on Lasix. In the ER, the patient was evaluated and found to have low potassium of 2.7, so the patient was given potassium 40 mEq IV piggyback as well as oral potassium of 40, and admitted for further evaluation and management. PAST MEDICAL HISTORY: 1. Rheumatoid arthritis. 2. Hypertension. 3. Hypothyroidism. 4. Chronic pain. 5. Congestive heart failure. PAST SURGICAL HISTORY: Status post appendectomy, status post . CURRENT MEDICATIONS: The patient is on prednisone 10 mg daily, leflunomide 20 mg daily, Lasix 40 mg daily, Coreg 6.25 b.i.d., losartan 25 mg daily, levothyroxine 100 mcg daily, tramadol 50 b.i.d. p.r.n. ALLERGIES: CODEINE SULFATE, LISINOPRIL, and PENICILLIN. FAMILY HISTORY: Nothing of interest. SOCIAL HISTORY: The patient lives with family. No history of smoking. No history of alcohol intake. REVIEW OF SYSTEMS: Unremarkable. PHYSICAL EXAMINATION: GENERAL: The patient is alert, awake, oriented x3. VITAL SIGNS: Temperature 98, pulse 96, respirations 20, blood pressure 130/100. HEENT: Head is normocephalic, atraumatic. Pupils are equal and reactive. Nasopharynx is pink and moist. NECK: Supple. No JVD. LUNGS: No rales, no rhonchi. HEART: S1, S2 regular. ABDOMEN: Soft. No distention, no tenderness. Normal bowel sounds present. RECTAL EXAMINATION: Deferred. CENTRAL NERVOUS SYSTEM: No focal deficit. LABORATORY AND X-RAY FINDINGS: CBC shows WBC 7.8, hemoglobin 9.7, hematocrit 33 , platelets 366. Metabolic panel: Sodium 141, potassium 2.7, chloride 101, CO2 of 29, BUN 12, creatinine 0.84, glucose 139. Troponin I is less than 0.010. EKG showed normal sinus rhythm, no acute ST-T wave changes seen. ASSESSMENT: 1. Hypokalemia, severe. 2. Congestive heart failure. 3. Rheumatoid arthritis. 4. Hypertension. 5. Hypothyroidism. PLAN: 1. Vital signs q.4 hours. 2. Activity: As tolerated. 3. Allergies: CODEINE SULFATE, PENICILLIN, and LISINOPRIL. 4. Hep-Lock. 5. Diet: Cardiac. 6. Continue home medicine. 7. KCl 20 mEq daily. 8. Trend BMP. MTDD
[2018-02-23] MEDS ORDERED: Levothyroxine Sodium 100 MCG TAB PO SCH (06:00)
[2018-02-23] MEDS ORDERED: Potassium Chloride 20 MEQ TAB PO SCH (08:00)
== END 2018-02-22 20:10 | disposition home or self-care (01) ==
LOC: ERS 23:23 → 2SW 02-22 02:09
PROVIDERS: ADMIT Internal Medicine; ATTEND Internal Medicine
DX: E87.6 Hypokalemia (principal); I11.0 Hypertensive heart disease with heart failure; I50.9 Heart failure, unspecified; M06.9 Rheumatoid arthritis, unspecified; E03.9 Hypothyroidism, unspecified; Z79.52 Long term (current) use of systemic steroids; Z79.899 Other long term (current) drug therapy; Z88.0 Allergy status to penicillin; Z88.2 Allergy status to sulfonamides; Z88.5 Allergy status to narcotic agent; Z88.8 Allergy status to other drugs, medicaments and biological substances
CPT/HCPCS: 36415; 80053; 83735; 84484; 85025; 93005; 96365; 96366; 96368; G0378; J3480; J7050; J7506

== ENCOUNTER 2021-03-02 11:27 | Emergency (ER) | payer OTHER ==
[2021-03-02] MEDS ORDERED: predniSONE 20 MG TAB ONE (13:27)
[2021-03-02 17:03] LABS: SARS-CoV-2 PCR by NAA Not Detected (NotDetected)
== END 2021-03-02 13:46 | disposition home or self-care (01) ==
LOC: ERS 11:27
DX: J20.9 Acute bronchitis, unspecified (principal); I11.0 Hypertensive heart disease with heart failure; I50.9 Heart failure, unspecified; E03.9 Hypothyroidism, unspecified; M06.9 Rheumatoid arthritis, unspecified; Z20.822 Contact with and (suspected) exposure to COVID-19; Z79.899 Other long term (current) drug therapy
CPT/HCPCS: 71046; J7512; U0003; U0005

== ENCOUNTER 2021-05-07 13:24 | Outpatient (CLI) | payer OTHER | END 2021-05-07 13:25 | disposition home or self-care (01) | LOC: BICRAD 13:24 | PROVIDERS: ATTEND Physician Assistant | DX: I50.22 Chronic systolic (congestive) heart failure (principal); K44.9 Diaphragmatic hernia without obstruction or gangrene | CPT/HCPCS: 36415; 71046; 80053; 83880; 85025 ==

== ENCOUNTER 2021-06-24 16:58 | Emergency (ER) | payer OTHER ==
[2021-06-24 17:36] LABS: #Eosinphils 0.1 thou/uL (0.0-0.7); #Lymphocytes 2.2 thou/uL (1.20-3.40); #Neutrophils 4.4 thou/uL (1.40-6.50); %Basophils 0.4 % (0.0-1.0); %Eosinophils 1.8 % (0.0-10.0); %Lymphocytes 28.8 % (21.0-51.0); %Monocytes 13.1 % (0.0-10.0); %Neutrophils 55.9 % (42.0-75.0); Hemoglobin 11.6 g/dL (12.0-16.0); Mean Corpuscular HGB CONC 34.1 g/dL (32.0-36.0); Mean Corpuscular Hemoglobin 32.4 pg (27.0-31.0); Mean Platelet Volume 7.5 fL (7.4-10.4); Platelet Count 337 thou/uL (130-400); RBC Distribution Width 14.3 % (11.5-14.5); Red Blood Cell (RBC) Count 3.57 mill/uL (4.20-5.40); White Blood Cell (WBC) Count 7.8 thou/uL (4.8-10.8)
[2021-06-24 18:07] LABS: ALT (SGPT) 16 U/L (8-55); AST (SGOT) 19 U/L (5-34); Alkaline Phosphatase 129 U/L (40-110); Anion Gap 15 mmol/L (10-20); BUN (Urea Nitrogen) 15 mg/dL (9.8-20.1); Bilirubin, Total 0.3 mg/dL (0.2-1.2); CK (CPK) 93 U/L (29-168); Calc. Creatinine Clearance 0 mL/min (70-130); Calcium 8.8 mg/dL (7.8-10.44); Carbon Dioxide 19 mmol/L (22-29); Chloride 111 mmol/L (98-107); Globulin 3.8 g/dL (2.4-3.5); Glucose 112 mg/dL (70-105); Lipase 33 U/L (8-78); Potassium 4.5 mmol/L (3.5-5.1); Protein, Total 7.8 g/dL (6.0-8.3); Sodium 140 mmol/L (136-145)
[2021-06-24] MEDS ORDERED: Lorazepam 2 MG/ML VIAL ONE (18:10)
[2021-06-24] MEDS ORDERED: Meclizine HCl 25 MG TAB ONE (18:10)
[2021-06-24] MEDS ORDERED: diphenhydrAMINE 50 MG/ML VIAL ONE (18:57)
[2021-06-24] MEDS ORDERED: Metoclopramide HCl 10 MG/2 ML VIAL ONE (18:57)
[2021-06-24 20:06] LABS: Troponin I Less than 0.010 ng/mL (< 0.028)
== END 2021-06-24 20:50 | disposition home or self-care (01) ==
LOC: ERS 16:58
DX: R07.9 Chest pain, unspecified (principal); R42 Dizziness and giddiness; F41.9 Anxiety disorder, unspecified; I11.0 Hypertensive heart disease with heart failure; I50.9 Heart failure, unspecified; E03.9 Hypothyroidism, unspecified; Z79.899 Other long term (current) drug therapy
CPT/HCPCS: 36415; 70450; 71045; 80053; 82550; 83690; 84484; 85025; 93005; 96374; 96375; J1200; J2060; J2765

== ENCOUNTER 2022-02-04 18:41 | Observation (INO) | payer OTHER ==
[2022-02-04 19:07] LABS: #Eosinphils 0.1 thou/uL (0.0-0.7); #Lymphocytes 2.7 thou/uL (1.20-3.40); #Monocytes 0.9 thou/uL (0.11-0.59); #Neutrophils 3.8 thou/uL (1.40-6.50); %Basophils 0.4 % (0.0-1.0); %Eosinophils 1.6 % (0.0-10.0); %Lymphocytes 35.7 % (21.0-51.0); %Monocytes 12.2 % (0.0-10.0); %Neutrophils 50.1 % (42.0-75.0); Hemoglobin 10.2 g/dL (12.0-16.0); Mean Corpuscular HGB CONC 31.9 g/dL (32.0-36.0); Mean Corpuscular Volume 84.7 fL (78.0-98.0); Mean Platelet Volume 8.1 fL (7.4-10.4); Platelet Count 326 thou/uL (130-400); RBC Distribution Width 14.6 % (11.5-14.5); Red Blood Cell (RBC) Count 3.79 mill/uL (4.20-5.40); White Blood Cell (WBC) Count 7.6 thou/uL (4.8-10.8)
[2022-02-04 19:29] LABS: ALT (SGPT) 13 U/L (8-55); AST (SGOT) 20 U/L (5-34); Albumin 4.4 g/dL (3.4-4.8); Alkaline Phosphatase 113 U/L (40-110); Anion Gap 14 mmol/L (10-20); BUN (Urea Nitrogen) 14 mg/dL (9.8-20.1); Bilirubin, Total 0.5 mg/dL (0.2-1.2); Calc. Creatinine Clearance 0 mL/min (70-130); Calcium 9.4 mg/dL (7.8-10.44); Carbon Dioxide 22 mmol/L (23-31); Chloride 109 mmol/L (98-107); Estimated GFR 49; Globulin 3.8 g/dL (2.4-3.5); Glucose 92 mg/dL (80-115); Potassium 4.5 mmol/L (3.5-5.1); Protein, Total 8.2 g/dL (5.8-8.1); Sodium 140 mmol/L (136-145)
[2022-02-04] MEDS ORDERED: Aspirin Chewable 81 MG TAB ONE (19:35)
[2022-02-04] MEDS ORDERED: Nitroglycerin 2% Ointment 1 INCH/1 GM Packet ONE (19:35)
[2022-02-04] MEDS ORDERED: Acetaminophen 500 MG TAB ONE (22:20)
[2022-02-04] MEDS ORDERED: Nitroglycerin 0.4 MG TAB 1 EACH ONE (22:20)
[2022-02-04 23:22] LABS: Troponin I Less than 0.010 ng/mL (< 0.028)
[2022-02-04] MEDS ORDERED: Ondansetron PF 4 MG/2 ML Vial IVP PRN (23:45)
[2022-02-04] MEDS ORDERED: Nitroglycerin 0.4 MG TAB (25 Tab Bottle) SL PRN (23:45)
[2022-02-05] MEDS ORDERED: Sodium Chloride 0.9% 1,000 ML IV SCH (00:30)
[2022-02-05 00:40] VITALS: BMI 27.6
[2022-02-05] MEDS: Acetaminophen 325 MG TAB PO PRN ×3 (02:13→15:45)
[2022-02-05 02:19] LABS: Troponin I Less than 0.010 ng/mL (< 0.028)
[2022-02-05 05:24] LABS: Anion Gap 14 mmol/L (10-20); BUN (Urea Nitrogen) 18 mg/dL (9.8-20.1); Calc. Creatinine Clearance 57 mL/min (70-130); Calcium 8.7 mg/dL (7.8-10.44); Carbon Dioxide 22 mmol/L (23-31); Chloride 108 mmol/L (98-107); Estimated GFR 57; Glucose 144 mg/dL (80-115); Potassium 3.7 mmol/L (3.5-5.1); Sodium 140 mmol/L (136-145)
[2022-02-05 06:13] LABS: Hemoglobin 9.2 g/dL (12.0-16.0); Lymphocytes 33 % (21-51); MDiff Complete? YES; Mean Corpuscular HGB CONC 32.6 g/dL (32.0-36.0); Mean Corpuscular Hemoglobin 27.4 pg (27.0-31.0); Mean Corpuscular Volume 84.1 fL (78.0-98.0); Mean Platelet Volume 8.3 fL (7.4-10.4); Monocytes 13 % (0-10); Neutrophil 54 % (42-75); Platelet Count 254 thou/uL (130-400); Platelet Morphology Comment Appears Adequate; RBC Distribution Width 14.6 % (11.5-14.5); RBC Morphology Normal; Red Blood Cell (RBC) Count 3.34 mill/uL (4.20-5.40); White Blood Cell (WBC) Count 7.3 thou/uL (4.8-10.8)
[2022-02-05] MEDS ORDERED: predniSONE 1 MG TAB PO SCH (09:00)
[2022-02-05] MEDS ORDERED: Carvedilol 3.125 MG TAB PO SCH (17:00)
[2022-02-05] MEDS ORDERED: Carvedilol 6.25 MG TAB PO SCH (17:00)
[2022-02-05 17:27] VITALS: BP 152/80; TEMP 98.2
[2022-02-05] MEDS ORDERED: Rosuvastatin 20 MG TAB PO SCH (21:00)
[2022-02-06] MEDS ORDERED: Levothyroxine Sodium 88 MCG TAB PO SCH (06:00)
[2022-02-06] MEDS ORDERED: Levothyroxine Sodium 100 MCG TAB PO SCH (06:00)
[2022-02-06] MEDS ORDERED: OLMESARTAN MEDOXOMIL 5 MG PO SCH (09:00)
[2022-02-06] MEDS ORDERED: Folic Acid 1 MG TAB PO SCH (09:00)
[2022-02-06] MEDS ORDERED: predniSONE 1 MG/ML ML PO SCH (09:00)
[2022-02-06] MEDS ORDERED: Non-Formulary Item 1 EACH (Prednisone [Prednisone] 10 MG Tablet) PO SCH (09:00)
[2022-02-06] MEDS ORDERED: Losartan 25 MG TAB PO SCH (09:00)
[2022-02-06] MEDS ORDERED: Aspirin 81 mg Enteric Coated Tablet PO SCH (09:00)
== END 2022-02-05 19:17 | disposition home or self-care (01) ==
LOC: ERS 18:41 → 2SW 22:24
PROVIDERS: ADMIT Student in an Organized Health Care Education/Training Program; ATTEND Student in an Organized Health Care Education/Training Program
DX: R07.9 Chest pain, unspecified (principal); I13.0 Hypertensive heart and chronic kidney disease with heart failure and stage 1 through stage 4 chronic kidney disease, or unspecified chronic kidney disease; N18.30 Chronic kidney disease, stage 3 unspecified; I50.32 Chronic diastolic (congestive) heart failure; D63.1 Anemia in chronic kidney disease; N17.9 Acute kidney failure, unspecified; M06.9 Rheumatoid arthritis, unspecified; E03.9 Hypothyroidism, unspecified; K44.9 Diaphragmatic hernia without obstruction or gangrene; I42.8 Other cardiomyopathies; K21.9 Gastro-esophageal reflux disease without esophagitis; I08.1 Rheumatic disorders of both mitral and tricuspid valves; Z87.891 Personal history of nicotine dependence; Z79.52 Long term (current) use of systemic steroids; Z79.82 Long term (current) use of aspirin; Z79.890 Hormone replacement therapy; Z79.899 Other long term (current) drug therapy; Z88.0 Allergy status to penicillin; Z88.5 Allergy status to narcotic agent; Z88.8 Allergy status to other drugs, medicaments and biological substances; Z91.030 Bee allergy status; Z20.822 Contact with and (suspected) exposure to COVID-19
CPT/HCPCS: 36415; 71046; 80048; 80053; 83880; 84484; 85025; 93005; 93306; 94760; G0378; J7050; J7512; U0003; U0005

== ENCOUNTER 2022-06-25 14:38 | Outpatient (CLI) | payer OTHER ==
[2022-06-25 15:38] LABS: #Eosinphils 0.3 10x3/uL (0.0-0.5); #Monocytes 0.8 10x3/uL (0.0-1.1); #Neutrophils 3.5 10x3/uL (1.5-8.4); %Basophils 0.5 % (0.0-2.0); %Eosinophils 3.9 % (0.0-6.0); %Lymphocytes 29.1 % (18.0-47.0); %Monocytes 11.7 % (0.0-10.0); %Neutrophils 54.5 % (40.0-75.0); Hemoglobin 12.5 g/dL (12.0-15.5); Mean Corpuscular HGB CONC 32.6 g/dL (32.0-36.0); Mean Corpuscular Hemoglobin 29.1 pg (27.0-33.0); Mean Corpuscular Volume 89.3 fl (81.6-98.3); Platelet Count 303 10x3/uL (150-450); RBC Distribution Width 21.7 % (11.5-14.5); Red Blood Cell (RBC) Count 4.29 10x6/uL (3.90-5.03); White Blood Cell (WBC) Count 6.4 10x3/uL (3.5-10.5)
[2022-06-25 16:20] LABS: Anion Gap 14 mmol/L (10-20); BUN (Urea Nitrogen) 15 mg/dL (9.8-20.1); Calc. Creatinine Clearance 0 mL/min (70-130); Calcium 9.6 mg/dL (7.8-10.44); Carbon Dioxide 23 mmol/L (23-31); Chloride 109 mmol/L (98-107); Estimated GFR 59; Glucose 126 mg/dL (80-115); Potassium 4.6 mmol/L (3.5-5.1); Sodium 141 mmol/L (136-145)
== END 2022-06-25 14:39 | disposition home or self-care (01) ==
LOC: LABBT 14:38
PROVIDERS: ATTEND Surgery
DX: Z01.812 Encounter for preprocedural laboratory examination (principal); K44.9 Diaphragmatic hernia without obstruction or gangrene
CPT/HCPCS: 80048; 85025

== ENCOUNTER 2022-06-30 06:15 | Observation (INO) | payer OTHER ==
[~2022-06-30 06:15] MED LIST: Dexmedetomidine 200 MCG/2 ML VIAL ONE; Phenylephrine 10 MG/ML VIAL ONE; SUGAMMADEX SODIUM 200 MG/2 ML VIAL ONE; fentaNYL PF 100 MCG/2 ML SYRINGE ONE
[2022-06-30] MEDS ORDERED: Bupivacaine/Epinephrine 0.25% 30 ML VIAL ONE (06:52)
[2022-06-30] MEDS ORDERED: CEFAZOLIN 2 GM VIAL ONE (07:35)
[2022-06-30] MEDS ORDERED: Sodium Chloride 0.9% 100 ML ONE (07:35)
[2022-06-30] MEDS ORDERED: Famotidine/PF 20 mg/2ml Vial ONE (07:36)
[2022-06-30] MEDS ORDERED: Midazolam HCl 2 mg/2 ml Vial ONE (07:36)
[2022-06-30] MEDS ORDERED: Levofloxacin 500 mg/D5W 100 ml Premix Bag ONE (07:42)
[2022-06-30 07:44] LABS: SARS-CoV-2 NAA Rapid Test Not Detected (NotDetected)
[2022-06-30] MEDS ORDERED: Ketorolac Tromethamine 30 MG/ML VIAL ONE (07:55)
[2022-06-30] MEDS ORDERED: Lidocaine 1% PF 5 ML VIAL ONE (07:55)
[2022-06-30] MEDS ORDERED: Glycopyrrolate 0.2 MG/ML 5 ML SYRINGE ONE (07:55)
[2022-06-30] MEDS ORDERED: Rocuronium Bromide 10 MG/ML (10ML VIAL) ONE (07:55)
[2022-06-30] MEDS ORDERED: Dexamethasone 20 MG/5 ML VIAL ONE (07:55)
[2022-06-30] MEDS ORDERED: Ondansetron PF 4 MG/2 ML Vial ONE (07:55)
[2022-06-30] MEDS ORDERED: PROPOFOL 200 MG/20 ML VIAL ONE (07:55)
[2022-06-30] MEDS ORDERED: PHENYLEPHRINE-NS 100 MCG/ML 10 ML SYRINGE ONE (07:55)
[2022-06-30] MEDS ORDERED: HYDROmorphone 0.5 MG/0.5 ML SYRINGE ONE ×3 (09:18→09:56)
[2022-06-30] MEDS ORDERED: hydrALAZINE 20 MG/ML VIAL SLOW IVP PRN (09:31)
[2022-06-30] MEDS ORDERED: Morphine 4 MG/ML VIAL SLOW IVP PRN (09:31)
[2022-06-30] MEDS ORDERED: Promethazine HCl 25 MG/ML VIAL IM PRN (09:31)
[2022-06-30] MEDS ORDERED: Dextrose 50% Abboject 50 ML SYRINGE SLOW IVP PRN (09:31)
[2022-06-30] MEDS ORDERED: Ipratropium/Albuterol 3 ML NEB NEB PRN (09:31)
[2022-06-30] MEDS ORDERED: Dextrose 5% in Water 1,000 ML IV PRN (09:31)
[2022-06-30] MEDS: D5 1/2 NS w/20 mEq KCL 1,000 ML IV SCH ×2 (09:40→18:00)
[2022-06-30] MEDS ORDERED: D5 1/2 NS w/20 mEq KCL 1,000 ML ONE (09:43)
[2022-06-30] MEDS ORDERED: Fentanyl 100 MCG/2 ML VIAL ONE (10:24)
[2022-06-30 13:35] VITALS: BMI 27.4
[2022-06-30] MEDS: Carvedilol 3.125 MG TAB PO SCH (17:28)
[2022-06-30] MEDS: traMADol HCl 50 MG TAB PO PRN ×2 (17:34→23:22)
[2022-06-30] MEDS: Ondansetron PF 4 MG/2 ML Vial IVP PRN (17:37)
[2022-06-30] MEDS: Famotidine/PF 20 mg/2ml Vial SLOW IVP SCH (20:15)
[2022-06-30] MEDS: Famotidine 20 MG TAB PO SCH (20:16)
[2022-06-30] MEDS ORDERED: Potassium Chloride 20 MEQ TAB PO SCH (21:00)
[2022-06-30] MEDS ORDERED: Rosuvastatin 20 MG TAB PO SCH (21:00)
[2022-07-01] MEDS: Ondansetron PF 4 MG/2 ML Vial IVP PRN ×2 (05:01→13:49)
[2022-07-01] MEDS: traMADol HCl 50 MG TAB PO PRN ×2 (05:03→13:46)
[2022-07-01 05:26] LABS: #Lymphocytes 1.1 thou/uL (1.20-3.40); #Monocytes 1.6 thou/uL (0.11-0.59); #Neutrophils 13.8 thou/uL (1.40-6.50); %Basophils 0.1 % (0.0-1.0); %Eosinophils 0.1 % (0.0-10.0); %Lymphocytes 6.7 % (21.0-51.0); %Monocytes 9.8 % (0.0-10.0); %Neutrophils 83.3 % (42.0-75.0); Hemoglobin 10.9 g/dL (12.0-16.0); Mean Corpuscular HGB CONC 32.3 g/dL (32.0-36.0); Mean Corpuscular Hemoglobin 29.5 pg (27.0-31.0); Mean Corpuscular Volume 91.4 fl (78.0-98.0); Mean Platelet Volume 8.2 fL (7.4-10.4); Platelet Count 226 10x3/uL (130-400); RBC Distribution Width 20.5 % (11.5-14.5); Red Blood Cell (RBC) Count 3.68 mill/uL (4.20-5.40); White Blood Cell (WBC) Count 16.6 10x3/uL (4.8-10.8)
[2022-07-01 05:49] LABS: Anion Gap 8 mmol/L (10-20); BUN (Urea Nitrogen) 14 mg/dL (9.8-20.1); Calc. Creatinine Clearance 51 mL/min (70-130); Calcium 9.1 mg/dL (7.8-10.44); Carbon Dioxide 26 mmol/L (23-31); Chloride 107 mmol/L (98-107); Estimated GFR 50; Glucose 147 mg/dL (80-115); Potassium 4.9 mmol/L (3.5-5.1); Sodium 136 mmol/L (136-145)
[2022-07-01] MEDS ORDERED: Levothyroxine Sodium 88 MCG TAB PO SCH (06:00)
[2022-07-01] MEDS: Famotidine 20 MG TAB PO SCH (08:12)
[2022-07-01] MEDS: Carvedilol 3.125 MG TAB PO SCH (08:12)
[2022-07-01] MEDS: Famotidine/PF 20 mg/2ml Vial SLOW IVP SCH (08:16)
[2022-07-01] MEDS: D5 1/2 NS w/20 mEq KCL 1,000 ML IV SCH (08:16)
[2022-07-01] MEDS ORDERED: Losartan 25 MG TAB PO SCH (09:00)
[2022-07-01] MEDS ORDERED: Sertraline 25 MG TAB PO SCH (09:00)
[2022-07-01] MEDS ORDERED: predniSONE 1 MG TAB PO SCH (09:00)
[2022-07-01 12:04] VITALS: BP 124/77; TEMP 97.7
== END 2022-07-01 14:30 | disposition home or self-care (01) ==
LOC: SDC 06:15 → SURG A 09:27
PROVIDERS: ADMIT Surgery; ATTEND Surgery
PROC: 0BQT4ZZ Repair Diaphragm, Percutaneous Endoscopic Approach (ICD-10-PCS; principal; 2022-06-30)
PROC: 8E0W4CZ Robotic Assisted Procedure of Trunk Region, Percutaneous Endoscopic Approach (ICD-10-PCS; 2022-06-30)
DX: K44.9 Diaphragmatic hernia without obstruction or gangrene (principal); M06.9 Rheumatoid arthritis, unspecified; E78.00 Pure hypercholesterolemia, unspecified; I11.0 Hypertensive heart disease with heart failure; I50.9 Heart failure, unspecified; E03.9 Hypothyroidism, unspecified; Z79.52 Long term (current) use of systemic steroids; Z79.620 Long term (current) use of immunosuppressive biologic; Z79.890 Hormone replacement therapy; Z79.899 Other long term (current) drug therapy; Z88.0 Allergy status to penicillin; Z88.5 Allergy status to narcotic agent; Z88.8 Allergy status to other drugs, medicaments and biological substances; Z91.030 Bee allergy status; Z20.822 Contact with and (suspected) exposure to COVID-19
CPT/HCPCS: 36415; 71045; 80048; 85025; 96372; 96374; 96375; 96376; G0378; J1100; J1170; J1650; J1885; J1956; J2250; J2270; J2370; J2405; J2704; J3010; J3480; J3490; J7512; S0028; U0002

== ENCOUNTER 2022-07-22 17:19 | Emergency (ER) | payer OTHER ==
[2022-07-22] MEDS ORDERED: Iopamidol-370 76% 500 ML 1 ML ONE (17:30)
[2022-07-22 19:03] LABS: #Eosinphils 0.3 thou/uL (0.0-0.7); #Lymphocytes 2.4 thou/uL (1.20-3.40); #Monocytes 0.7 thou/uL (0.11-0.59); #Neutrophils 3.3 thou/uL (1.40-6.50); %Basophils 0.6 % (0.0-1.0); %Eosinophils 4.4 % (0.0-10.0); %Lymphocytes 35.3 % (21.0-51.0); %Monocytes 11.1 % (0.0-10.0); %Neutrophils 48.6 % (42.0-75.0); Hemoglobin 12.3 g/dL (12.0-16.0); Mean Corpuscular Hemoglobin 30.9 pg (27.0-31.0); Mean Corpuscular Volume 90.8 fl (78.0-98.0); Mean Platelet Volume 9.2 fL (7.4-10.4); Platelet Count 270 10x3/uL (130-400); RBC Distribution Width 18.9 % (11.5-14.5); Red Blood Cell (RBC) Count 3.98 mill/uL (4.20-5.40); White Blood Cell (WBC) Count 6.7 10x3/uL (4.8-10.8)
[2022-07-22 19:25] LABS: ALT (SGPT) 16 U/L (8-55); AST (SGOT) 18 U/L (5-34); Albumin 4.2 g/dL (3.4-4.8); Alkaline Phosphatase 91 U/L (40-110); Anion Gap 12 mmol/L (10-20); BUN (Urea Nitrogen) 11 mg/dL (9.8-20.1); Bilirubin, Total 0.2 mg/dL (0.2-1.2); Calc. Creatinine Clearance 0 mL/min (70-130); Calcium 8.9 mg/dL (7.8-10.44); Carbon Dioxide 20 mmol/L (23-31); Chloride 111 mmol/L (98-107); Estimated GFR 53; Globulin 3.4 g/dL (2.4-3.5); Glucose 127 mg/dL (80-115); Lipase 43 U/L (8-78); Protein, Total 7.6 g/dL (5.8-8.1); Sodium 139 mmol/L (136-145)
[2022-07-22 19:30] LABS: Bilirubin Negative (Negative); Blood, Urine Negative (Negative); Clarity Clear (Clear); Glucose, Urine (Dipstick) Normal (Negative); Ketone, Urine Negative (Negative); Leukocyte Negative Leu/uL (Negative); Nitrite Negative (Negative); Protein, Urine (Dipstick) Negative (Neg-Trace); Specific Gravity, Urine 1.014 (1.002-1.036); Urobilinogen Normal mg/dL (Less than 2); pH, Urine 5.5 (5.0-9.0)
[2022-07-22] MEDS ORDERED: Meclizine HCl 25 MG TAB ONE (19:51)
[2022-07-22] MEDS ORDERED: Ondansetron PF 4 MG/2 ML Vial ONE (19:51)
== END 2022-07-22 22:20 | disposition home or self-care (01) ==
LOC: ERS 17:19
DX: R42 Dizziness and giddiness (principal); R19.7 Diarrhea, unspecified; E86.0 Dehydration; I11.0 Hypertensive heart disease with heart failure; I50.9 Heart failure, unspecified; E03.9 Hypothyroidism, unspecified
CPT/HCPCS: 36415; 74177; 80053; 81003; 83690; 85025; 93005; 96361; 96374; J2405; Q9967

== ENCOUNTER 2022-08-10 10:05 | Outpatient (CLI) | payer OTHER | END 2022-08-10 10:06 | disposition home or self-care (01) | LOC: BICRAD 10:05 | PROVIDERS: ATTEND Surgery | DX: R10.84 Generalized abdominal pain (principal); T18.5XXA Foreign body in anus and rectum, initial encounter | CPT/HCPCS: 74019 ==

== ENCOUNTER 2023-01-15 06:55 | Emergency (ER) | payer OTHER ==
[2023-01-15] MEDS ORDERED: Ondansetron PF 4 MG/2 ML Vial ONE (07:19)
[2023-01-15] MEDS ORDERED: fentaNYL 50 mcg/mL 1 mL Vial ONE (07:27)
[2023-01-15 07:30] LABS: #Basophils 0.1 thou/uL (0.0-0.2); #Eosinphils 0.1 thou/uL (0.0-0.7); #Monocytes 1.1 thou/uL (0.11-0.59); %Basophils 0.5 % (0.0-1.0); %Eosinophils 1.2 % (0.0-10.0); %Lymphocytes 24.5 % (21.0-51.0); %Monocytes 11.1 % (0.0-10.0); %Neutrophils 62.4 % (42.0-75.0); Hematocrit 41.3 % (36.0-47.0); Hemoglobin 14.3 g/dL (12.0-16.0); Mean Corpuscular HGB CONC 34.6 g/dL (32.0-36.0); Mean Corpuscular Hemoglobin 32.4 pg (27.0-31.0); Mean Corpuscular Volume 93.7 fl (78.0-98.0); Mean Platelet Volume 9.6 fL (7.4-10.4); Platelet Count 289 10x3/uL (130-400); RBC Distribution Width 13.6 % (11.5-14.5); Red Blood Cell (RBC) Count 4.41 mill/uL (4.20-5.40); White Blood Cell (WBC) Count 9.5 10x3/uL (4.8-10.8)
[2023-01-15 07:52] LABS: PTT 26.1 sec (22.9-36.1); Prothrombin Time 13.5 sec (12.0-14.7)
[2023-01-15 08:00] LABS: ALT (SGPT) 17 U/L (8-55); AST (SGOT) 17 U/L (5-34); Albumin 4.7 g/dL (3.4-4.8); Alkaline Phosphatase 122 U/L (40-110); Anion Gap 16 mmol/L (10-20); BUN (Urea Nitrogen) 18 mg/dL (9.8-20.1); Bilirubin, Total 0.5 mg/dL (0.2-1.2); Calc. Creatinine Clearance 0 mL/min (70-130); Calcium 10.4 mg/dL (7.8-10.44); Carbon Dioxide 21 mmol/L (23-31); Chloride 106 mmol/L (98-107); Estimated GFR 53; Globulin 3.7 g/dL (2.4-3.5); Glucose 129 mg/dL (80-115); Lipase 28 U/L (8-78); Potassium 3.9 mmol/L (3.5-5.1); Protein, Total 8.4 g/dL (5.8-8.1); Sodium 139 mmol/L (136-145)
[2023-01-15 08:02] LABS: Troponin I Less than 0.010 ng/mL (< 0.028)
[2023-01-15] MEDS ORDERED: Pantoprazole 40 MG VIAL ONE (08:30)
[2023-01-15 08:50] LABS: Bilirubin Negative (Negative); Blood, Urine Negative (Negative); Glucose, Urine (Dipstick) Negative (Negative); Ketone, Urine Negative (Negative); Leukocyte Negative (Negative); Nitrite Negative (Negative); Protein, Urine (Dipstick) Negative (Neg-Trace)
[2023-01-15 09:06] LABS: Clarity Clear (Clear)
[2023-01-15 09:08] LABS: CAUTI Indications for Culture Pelvic or flank pain; RBC/HPF None Seen HPF (0-3); WBC/HPF None Seen HPF (0-3)
[2023-01-15 09:09] LABS: Bacteria/HPF None Seen HPF (None Seen)
[2023-01-15 09:10] LABS: Urine Culture Reflex No No
[2023-01-15] MEDS ORDERED: Morphine 2 MG/ML VIAL ONE (09:16)
[2023-01-15] MEDS ORDERED: diphenhydrAMINE 50 MG/ML VIAL ONE (09:16)
[2023-01-15] MEDS ORDERED: Haloperidol Lactate 5 MG/ML VIAL ONE (09:16)
[2023-01-15] MEDS ORDERED: Iopamidol-370 76% 500 ML MDV (1 ML CHARGE) ONE (10:59)
[2023-01-15] MEDS ORDERED: Mag-Al 1200 mg/1200 mg/30 ML UDCUP ONE (11:48)
== END 2023-01-15 11:57 | disposition home or self-care (01) ==
LOC: ERS 06:55
DX: K30 Functional dyspepsia (principal); I11.0 Hypertensive heart disease with heart failure; I50.9 Heart failure, unspecified; E03.9 Hypothyroidism, unspecified; Z79.899 Other long term (current) drug therapy
CPT/HCPCS: 71045; 74177; 80053; 81001; 83690; 84484; 85025; 85610; 85730; 93005; 96374; 96375; C9113; J1200; J1630; J2272; J2405; J3010; Q9967

== ENCOUNTER 2023-01-16 10:52 | Inpatient (IN) | payer OTHER ==
[2023-01-16] MEDS ORDERED: Famotidine/PF 20 mg/2ml Vial ONE (11:31)
[2023-01-16] MEDS ORDERED: Ondansetron PF 4 MG/2 ML Vial ONE ×3 (11:31→20:38)
[2023-01-16 11:33] LABS: #Monocytes 1.2 thou/uL (0.11-0.59); #Neutrophils 12.6 thou/uL (1.40-6.50); %Basophils 0.1 % (0.0-1.0); %Lymphocytes 8.2 % (21.0-51.0); %Monocytes 8.1 % (0.0-10.0); %Neutrophils 83.2 % (42.0-75.0); Hematocrit 41.7 % (36.0-47.0); Hemoglobin 14.2 g/dL (12.0-16.0); Mean Corpuscular HGB CONC 34.1 g/dL (32.0-36.0); Mean Corpuscular Hemoglobin 32.1 pg (27.0-31.0); Mean Corpuscular Volume 94.1 fl (78.0-98.0); Mean Platelet Volume 9.4 fL (7.4-10.4); Platelet Count 270 10x3/uL (130-400); RBC Distribution Width 13.7 % (11.5-14.5); Red Blood Cell (RBC) Count 4.43 mill/uL (4.20-5.40); White Blood Cell (WBC) Count 15.2 10x3/uL (4.8-10.8)
[2023-01-16] MEDS ORDERED: Iopamidol-370 76% 500 ML MDV (1 ML CHARGE) ONE (11:36)
[2023-01-16 12:03] LABS: Troponin I Less than 0.010 ng/mL (< 0.028)
[2023-01-16 12:05] LABS: ALT (SGPT) 15 U/L (8-55); AST (SGOT) 15 U/L (5-34); Albumin 4.5 g/dL (3.4-4.8); Alkaline Phosphatase 112 U/L (40-110); Anion Gap 14 mmol/L (10-20); BUN (Urea Nitrogen) 19 mg/dL (9.8-20.1); Bilirubin, Total 0.6 mg/dL (0.2-1.2); CK (CPK) 66 U/L (29-168); Calc. Creatinine Clearance 0 mL/min (70-130); Calcium 10.2 mg/dL (7.8-10.44); Carbon Dioxide 23 mmol/L (23-31); Chloride 104 mmol/L (98-107); Estimated GFR 68; Globulin 3.7 g/dL (2.4-3.5); Glucose 132 mg/dL (80-115); Lipase 11 U/L (8-78); Protein, Total 8.2 g/dL (5.8-8.1); Sodium 137 mmol/L (136-145)
[2023-01-16] MEDS ORDERED: Ketorolac Tromethamine 30 MG/ML VIAL ONE (13:59)
[2023-01-16 14:20] LABS: Bacteria/HPF None Seen HPF (None Seen); Bilirubin Negative (Negative); Blood, Urine Negative (Negative); CAUTI Indications for Culture Pelvic or flank pain; Clarity Clear (Clear); Glucose, Urine (Dipstick) Normal (Negative); Ketone, Urine 10 mg/dL (Negative); Leukocyte Negative Leu/uL (Negative); Nitrite Negative (Negative); Protein, Urine (Dipstick) 20 mg/dL (Neg-Trace); RBC/HPF 0-3 HPF (0-3); Specific Gravity, Urine 1.021 (1.002-1.036); Squamous Epithelial 0-3 HPF (0-3); Urobilinogen Normal mg/dL (Less than 2); WBC/HPF 0-3 HPF (0-3)
[2023-01-16 14:22] LABS: Urine Culture Reflex No No
[2023-01-16] MEDS ORDERED: LevoFLOXacin 750 mg/D5W 150 ml Premix Bag ONE (17:35)
[2023-01-16] MEDS ORDERED: fentaNYL 50 mcg/mL 1 mL Vial ONE ×5 (17:35→23:39)
[2023-01-16] MEDS ORDERED: Promethazine HCl 12.5 MG in Sodium Chloride 0.9% 50 ML IVPB SCH (17:45)
[2023-01-16] MEDS ORDERED: Guaifenesin DM 100-10/5 ML UDCUP PO PRN (18:24)
[2023-01-16] MEDS ORDERED: Acetaminophen 325 MG TAB PO PRN (18:24)
[2023-01-16] MEDS ORDERED: Senokot S 8.6-50 MG TAB PO PRN (18:24)
[2023-01-16] MEDS ORDERED: Ondansetron PF 4 MG/2 ML Vial IVP PRN ×2 (18:27→22:26)
[2023-01-16] MEDS ORDERED: Sodium Chloride 0.9% 1,000 ML IV SCH (18:30)
[2023-01-16] MEDS ORDERED: SUGAMMADEX SODIUM 200 MG/2 ML VIAL ONE ×2 (20:30→22:22)
[2023-01-16] MEDS ORDERED: Lidocaine 1% PF 5 ML VIAL ONE (20:38)
[2023-01-16] MEDS ORDERED: Rocuronium Bromide 10 MG/ML (10ML VIAL) ONE (20:38)
[2023-01-16] MEDS ORDERED: PROPOFOL 200 MG/20 ML VIAL ONE (20:38)
[2023-01-16] MEDS ORDERED: Fentanyl 250 MCG/5 ML VIAL ONE (21:05)
[2023-01-16] MEDS ORDERED: Midazolam HCl 2 mg/2 ml Vial ONE (21:05)
[2023-01-16] MEDS ORDERED: Promethazine HCl 25 MG/ML VIAL IM PRN ×2 (22:26)
[2023-01-16] MEDS ORDERED: Naloxone HCl 0.4 mg/ml Vial IV PRN (22:26)
[2023-01-16] MEDS ORDERED: FENTANYL 500 MCG/10 ML VIAL 2,000 MCG in Sodium Chloride 0.9% 60 ML IV PRN (22:26)
[2023-01-16] MEDS ORDERED: diphenhydrAMINE 50 MG/ML VIAL IM PRN (22:26)
[2023-01-16] MEDS ORDERED: Ondansetron HCl/PF 4 MG/2 ML Vial IVP PRN (22:26)
[2023-01-16] MEDS ORDERED: diphenhydrAMINE 25 MG CAP PO PRN (22:26)
[2023-01-16] MEDS ORDERED: diphenhydrAMINE 50 MG/ML VIAL IVP PRN (22:26)
[2023-01-16] MEDS ORDERED: Communication Order-Pharmacy FS SCH (22:30)
[2023-01-16] MEDS ORDERED: Labetalol HCl 100 MG/20 ML VIAL ONE (23:11)
[2023-01-16] MEDS ORDERED: Ketorolac Tromethamine 30 MG/ML VIAL IVP SCH (23:15)
[2023-01-17] MEDS: Pantoprazole 40 MG VIAL IVP SCH ×3 (00:34→21:27)
[2023-01-17] MEDS: Losartan 25 MG TAB PO SCH ×2 (00:34→21:27)
[2023-01-17 00:40] VITALS: BMI 25.0
[2023-01-17] MEDS: 1/2 NS w/KCL 20 mEq 1,000 ML IV SCH ×4 (00:55→21:26)
[2023-01-17] MEDS ORDERED: Benzocaine/Menthol 1 LOZ LOZ PO PRN (02:51)
[2023-01-17] MEDS: Ketorolac Tromethamine 30 MG/ML VIAL IVP SCH ×3 (05:46→17:23)
[2023-01-17 06:26] LABS: #Monocytes 2.3 thou/uL (0.11-0.59); #Neutrophils 17.5 thou/uL (1.40-6.50); %Basophils 0.1 % (0.0-1.0); %Lymphocytes 6.3 % (21.0-51.0); %Monocytes 10.9 % (0.0-10.0); %Neutrophils 82.3 % (42.0-75.0); Hematocrit 34.4 % (36.0-47.0); Hemoglobin 11.5 g/dL (12.0-16.0); Mean Corpuscular HGB CONC 33.4 g/dL (32.0-36.0); Mean Corpuscular Hemoglobin 32.9 pg (27.0-31.0); Mean Platelet Volume 9.5 fL (7.4-10.4); Platelet Count 227 10x3/uL (130-400); RBC Distribution Width 14.1 % (11.5-14.5); White Blood Cell (WBC) Count 21.3 10x3/uL (4.8-10.8)
[2023-01-17 06:53] LABS: Mean Corpuscular Volume 98.3 fl (78.0-98.0)
[2023-01-17 06:54] LABS: ALT (SGPT) 48 U/L (8-55); AST (SGOT) 59 U/L (5-34); Albumin 3.4 g/dL (3.4-4.8); Alkaline Phosphatase 84 U/L (40-110); Anion Gap 11 mmol/L (10-20); BUN (Urea Nitrogen) 19 mg/dL (9.8-20.1); Bilirubin, Total 0.5 mg/dL (0.2-1.2); Calc. Creatinine Clearance 72 mL/min (70-130); Calcium 8.5 mg/dL (7.8-10.44); Carbon Dioxide 20 mmol/L (23-31); Chloride 108 mmol/L (98-107); Estimated GFR 85; Globulin 2.7 g/dL (2.4-3.5); Glucose 113 mg/dL (80-115); Potassium 4.1 mmol/L (3.5-5.1); Protein, Total 6.1 g/dL (5.8-8.1); Sodium 135 mmol/L (136-145)
[2023-01-17] MEDS: Carvedilol 3.125 MG TAB PO SCH ×2 (08:30→17:23)
[2023-01-17] MEDS: Sertraline 25 MG TAB PO SCH (08:30)
[2023-01-17] MEDS ORDERED: Ondansetron ODT 4 MG TAB PO PRN (15:52)
[2023-01-17] MEDS ORDERED: Methotrexate Sodium 2.5 MG TAB PO SCH (16:00)
[2023-01-17] MEDS: Rosuvastatin 20 MG TAB PO SCH (21:26)
[2023-01-18] MEDS: 1/2 NS w/KCL 20 mEq 1,000 ML IV SCH ×3 (00:07→17:08)
[2023-01-18] MEDS: Ketorolac Tromethamine 30 MG/ML VIAL IVP SCH ×4 (00:09→17:07)
[2023-01-18] MEDS ORDERED: Levothyroxine Sodium 100 MCG TAB PO SCH (06:00)
[2023-01-18] MEDS ORDERED: Levothyroxine Sodium 88 MCG TAB PO SCH (06:30)
[2023-01-18 06:32] LABS: #Eosinphils 0.1 thou/uL (0.0-0.7); #Monocytes 1.4 thou/uL (0.11-0.59); #Neutrophils 6.6 thou/uL (1.40-6.50); %Basophils 0.2 % (0.0-1.0); %Eosinophils 1.1 % (0.0-10.0); %Lymphocytes 13.4 % (21.0-51.0); %Monocytes 14.9 % (0.0-10.0); %Neutrophils 70.2 % (42.0-75.0); Hematocrit 30.5 % (36.0-47.0); Hemoglobin 9.9 g/dL (12.0-16.0); Mean Corpuscular HGB CONC 32.5 g/dL (32.0-36.0); Mean Corpuscular Hemoglobin 31.9 pg (27.0-31.0); Mean Corpuscular Volume 98.4 fl (78.0-98.0); Mean Platelet Volume 9.4 fL (7.4-10.4); Platelet Count 176 10x3/uL (130-400); RBC Distribution Width 14.1 % (11.5-14.5); White Blood Cell (WBC) Count 9.5 10x3/uL (4.8-10.8)
[2023-01-18 06:57] LABS: Anion Gap 9 mmol/L (10-20); BUN (Urea Nitrogen) 14 mg/dL (9.8-20.1); Calc. Creatinine Clearance 77 mL/min (70-130); Calcium 8.5 mg/dL (7.8-10.44); Carbon Dioxide 23 mmol/L (23-31); Chloride 107 mmol/L (98-107); Estimated GFR 91; Glucose 104 mg/dL (80-115); Potassium 4.5 mmol/L (3.5-5.1); Sodium 134 mmol/L (136-145)
[2023-01-18] MEDS: Potassium Chloride 20 MEQ TAB PO SCH (08:01)
[2023-01-18] MEDS: Carvedilol 3.125 MG TAB PO SCH ×2 (08:02→17:07)
[2023-01-18] MEDS: Pantoprazole 40 MG VIAL IVP SCH (08:02)
[2023-01-18] MEDS: Sertraline 25 MG TAB PO SCH ×2 (08:02→08:24)
[2023-01-18] MEDS ORDERED: HYDROcodone/Acetaminophen 5/325 mg Tablet PO PRN (16:59)
[2023-01-18] MEDS ORDERED: traMADol HCl 50 MG TAB PO PRN (17:07)
[2023-01-18] MEDS ORDERED: Acetaminophen 500 MG TAB PO SCH (17:15)
[2023-01-18] MEDS: Rosuvastatin 20 MG TAB PO SCH (21:28)
[2023-01-18] MEDS: Senokot S 8.6-50 MG TAB PO SCH (21:28)
[2023-01-18] MEDS: Losartan 25 MG TAB PO SCH (21:30)
[2023-01-19] MEDS: Acetaminophen 500 MG TAB PO PRN (03:44)
[2023-01-19] MEDS: Ibuprofen 600 MG TAB PO PRN ×2 (03:44→20:37)
[2023-01-19] MEDS: Levothyroxine Sodium 88 MCG TAB PO SCH (06:08)
[2023-01-19] MEDS: HYDROcodone/Acetaminophen 5/325 mg Tablet PO PRN ×2 (09:27→15:41)
[2023-01-19] MEDS: Senokot S 8.6-50 MG TAB PO SCH ×2 (09:28→20:37)
[2023-01-19] MEDS: Potassium Chloride 20 MEQ TAB PO SCH (09:28)
[2023-01-19] MEDS: Sertraline 25 MG TAB PO SCH (09:29)
[2023-01-19] MEDS: Carvedilol 3.125 MG TAB PO SCH ×2 (09:29→17:27)
[2023-01-19] MEDS ORDERED: Lidocaine 2% Viscous Solution 20 ML, Aluminum & Magnesium Hydroxide 30 ML, Donnatal Eli... SSW SCH (10:00)
[2023-01-19 10:46] LABS: Troponin I Less than 0.010 ng/mL (< 0.028)
[2023-01-19 17:30] LABS: Troponin I Less than 0.010 ng/mL (< 0.028)
[2023-01-19] MEDS: Losartan 25 MG TAB PO SCH (20:37)
[2023-01-19] MEDS: Rosuvastatin 20 MG TAB PO SCH (20:37)
[2023-01-20] MEDS: Acetaminophen 500 MG TAB PO PRN (00:21)
[2023-01-20 00:54] LABS: Troponin I Less than 0.010 ng/mL (< 0.028)
[2023-01-20] MEDS: HYDROcodone/Acetaminophen 5/325 mg Tablet PO PRN ×2 (06:05→12:35)
[2023-01-20] MEDS: Levothyroxine Sodium 88 MCG TAB PO SCH (06:05)
[2023-01-20] MEDS: Carvedilol 3.125 MG TAB PO SCH (09:47)
[2023-01-20] MEDS: Senokot S 8.6-50 MG TAB PO SCH (09:48)
[2023-01-20] MEDS: Sertraline 25 MG TAB PO SCH (09:48)
[2023-01-20] MEDS: Potassium Chloride 20 MEQ TAB PO SCH ×2 (09:49→12:34)
[2023-01-20 11:38] VITALS: BP 151/97; TEMP 98.5
[2023-01-20 11:56] LABS: Anion Gap 10 mmol/L (10-20); BUN (Urea Nitrogen) 11 mg/dL (9.8-20.1); Calc. Creatinine Clearance 70 mL/min (70-130); Calcium 9.7 mg/dL (7.8-10.44); Carbon Dioxide 27 mmol/L (23-31); Chloride 103 mmol/L (98-107); Estimated GFR 81; Glucose 107 mg/dL (80-115); Sodium 136 mmol/L (136-145)
== END 2023-01-20 13:47 | disposition home or self-care (01) | DRG 326 ==
LOC: ERS 10:52 → T4-B 17:56 → INTOOBSV 17:56 → SURG A 01-17 00:20 → OBSVTOIN 01-18 15:20
PROVIDERS: ADMIT Hospitalist; ATTEND Family Medicine
PROC: 0DJ08ZZ Inspection of Upper Intestinal Tract, Via Natural or Artificial Opening Endoscopic (ICD-10-PCS; principal; 2023-01-16)
PROC: 0BQT0ZZ Repair Diaphragm, Open Approach (ICD-10-PCS; 2023-01-16)
PROC: 0DQ60ZZ Repair Stomach, Open Approach (ICD-10-PCS; 2023-01-16)
DX: K44.0 Diaphragmatic hernia with obstruction, without gangrene (principal); J18.9 Pneumonia, unspecified organism; I42.8 Other cardiomyopathies; K21.00 Gastro-esophageal reflux disease with esophagitis, without bleeding; E78.5 Hyperlipidemia, unspecified; E03.9 Hypothyroidism, unspecified; M06.9 Rheumatoid arthritis, unspecified; K31.89 Other diseases of stomach and duodenum; R13.10 Dysphagia, unspecified; Z91.030 Bee allergy status; Z88.6 Allergy status to analgesic agent; Z88.0 Allergy status to penicillin; Z88.8 Allergy status to other drugs, medicaments and biological substances; Z79.899 Other long term (current) drug therapy; Z79.890 Hormone replacement therapy; I11.0 Hypertensive heart disease with heart failure; I50.9 Heart failure, unspecified; Z90.49 Acquired absence of other specified parts of digestive tract; Z83.3 Family history of diabetes mellitus
CPT/HCPCS: 36415; 71045; 71275; 76705; 80048; 80053; 81001; 82550; 83690; 83880; 84484; 85025; 85379; 87040; 93005; 93010; 96361; 96365; 96375; 96376; A4314; C1751; C9113; G0378; J1200; J1650; J1885; J1956; J2250; J2405; J2550; J2704; J3010; J3480; J8610; Q9967; S0028

== ENCOUNTER 2023-02-19 21:07 | Observation (INO) | payer OTHER ==
[~2023-02-19 21:07] MED LIST changes: -Dexmedetomidine 200 MCG/2 ML VIAL ONE; +Iopamidol-370 76% 500 ML MDV (1 ML CHARGE) ONE; -Phenylephrine 10 MG/ML VIAL ONE; -SUGAMMADEX SODIUM 200 MG/2 ML VIAL ONE; -fentaNYL PF 100 MCG/2 ML SYRINGE ONE
[2023-02-19 21:38] LABS: #Eosinphils 0.2 thou/uL (0.0-0.7); #Monocytes 0.7 thou/uL (0.11-0.59); #Neutrophils 5.2 thou/uL (1.40-6.50); %Basophils 0.4 % (0.0-1.0); %Eosinophils 1.9 % (0.0-10.0); %Lymphocytes 25.9 % (21.0-51.0); %Monocytes 8.7 % (0.0-10.0); %Neutrophils 62.9 % (42.0-75.0); Hematocrit 39.6 % (36.0-47.0); Hemoglobin 13.1 g/dL (12.0-16.0); Mean Corpuscular HGB CONC 33.1 g/dL (32.0-36.0); Mean Corpuscular Hemoglobin 32.6 pg (27.0-31.0); Mean Corpuscular Volume 98.5 fl (78.0-98.0); Mean Platelet Volume 10.1 fL (7.4-10.4); Platelet Count 264 10x3/uL (130-400); Red Blood Cell (RBC) Count 4.02 mill/uL (4.20-5.40); White Blood Cell (WBC) Count 8.3 10x3/uL (4.8-10.8)
[2023-02-19] MEDS ORDERED: Acetaminophen 500 MG TAB ONE (21:38)
[2023-02-19] MEDS ORDERED: Azithromycin 500 MG VIAL ONE (21:38)
[2023-02-19] MEDS ORDERED: Ketorolac Tromethamine 30 MG/ML VIAL ONE (21:38)
[2023-02-19] MEDS ORDERED: cefTRIAXone (ROCEPHIN) 1 GM VIAL ONE (21:38)
[2023-02-19] MEDS ORDERED: Ipratropium/Albuterol 3 ML NEB ONE (21:42)
[2023-02-19 22:03] LABS: ALT (SGPT) 15 U/L (8-55); AST (SGOT) 21 U/L (5-34); Albumin 4.9 g/dL (3.4-4.8); Alkaline Phosphatase 107 U/L (40-110); Anion Gap 12 mmol/L (10-20); BUN (Urea Nitrogen) 12 mg/dL (9.8-20.1); Bilirubin, Total 0.4 mg/dL (0.2-1.2); Calc. Creatinine Clearance 0 mL/min (70-130); Calcium 9.8 mg/dL (7.8-10.44); Carbon Dioxide 24 mmol/L (23-31); Chloride 105 mmol/L (98-107); Estimated GFR 60; Globulin 3.7 g/dL (2.4-3.5); Glucose 161 mg/dL (80-115); Potassium 3.3 mmol/L (3.5-5.1); Protein, Total 8.6 g/dL (5.8-8.1); Sodium 138 mmol/L (136-145)
[2023-02-19 22:06] LABS: Troponin I Less than 0.010 ng/mL (< 0.028)
[2023-02-19] MEDS ORDERED: Potassium Chloride 20 MEQ TAB ONE (22:51)
[2023-02-19 23:42] LABS: Bacteria/HPF None Seen HPF (None Seen); Bilirubin Negative (Negative); Blood, Urine Negative (Negative); CAUTI Indications for Culture Fever or rigors; Clarity Clear (Clear); Glucose, Urine (Dipstick) Normal (Negative); Ketone, Urine Negative (Negative); Leukocyte Negative Leu/uL (Negative); Nitrite Negative (Negative); Protein, Urine (Dipstick) Negative (Neg-Trace); RBC/HPF None Seen HPF (0-3); Specific Gravity, Urine 1.013 (1.002-1.036); Squamous Epithelial None Seen HPF (0-3); Urobilinogen Normal mg/dL (Less than 2); WBC/HPF 0-3 HPF (0-3); pH, Urine 6.5 (5.0-9.0)
[2023-02-19 23:43] LABS: Urine Culture Reflex No No
[2023-02-20 00:02] VITALS: BMI 24.1
[2023-02-20] MEDS: Sodium Chloride 0.9% 1,000 ML IV SCH ×2 (00:15→08:20)
[2023-02-20] MEDS ORDERED: Ondansetron ODT 4 MG TAB PO PRN (00:18)
[2023-02-20] MEDS ORDERED: Senokot S 8.6-50 MG TAB PO PRN (00:18)
[2023-02-20] MEDS ORDERED: Calcium Carbonate 500 MG ChewTAB PO PRN (00:18)
[2023-02-20] MEDS ORDERED: Ipratropium/Albuterol 3 ML NEB NEB PRN (00:20)
[2023-02-20] MEDS ORDERED: Electrolyte Replacement Protocol 1 EACH FS SCH (00:26)
[2023-02-20] MEDS: Acetaminophen 325 MG TAB PO PRN ×2 (00:48→10:57)
[2023-02-20 00:53] LABS: Lactic Acid 1.3 mmol/L (0.5-2.2)
[2023-02-20 05:26] LABS: #Eosinphils 0.1 thou/uL (0.0-0.7); #Monocytes 0.9 thou/uL (0.11-0.59); #Neutrophils 2.5 thou/uL (1.40-6.50); %Basophils 0.3 % (0.0-1.0); %Eosinophils 1.8 % (0.0-10.0); %Lymphocytes 41.5 % (21.0-51.0); %Monocytes 14.8 % (0.0-10.0); %Neutrophils 41.4 % (42.0-75.0); Hematocrit 31.8 % (36.0-47.0); Hemoglobin 10.6 g/dL (12.0-16.0); Mean Corpuscular HGB CONC 33.3 g/dL (32.0-36.0); Mean Corpuscular Hemoglobin 33.2 pg (27.0-31.0); Mean Corpuscular Volume 99.7 fl (78.0-98.0); Platelet Count 207 10x3/uL (130-400); Red Blood Cell (RBC) Count 3.19 mill/uL (4.20-5.40)
[2023-02-20] MEDS ORDERED: Levothyroxine Sodium 88 MCG TAB PO SCH (06:00)
[2023-02-20 06:01] LABS: Anion Gap 11 mmol/L (10-20); BUN (Urea Nitrogen) 12 mg/dL (9.8-20.1); Calc. Creatinine Clearance 69 mL/min (70-130); Calcium 8.6 mg/dL (7.8-10.44); Carbon Dioxide 22 mmol/L (23-31); Chloride 113 mmol/L (98-107); Estimated GFR 83; Glucose 95 mg/dL (80-115); Potassium 4.1 mmol/L (3.5-5.1); Sodium 142 mmol/L (136-145)
[2023-02-20] MEDS ORDERED: Potassium Chloride 20 MEQ TAB PO SCH (08:00)
[2023-02-20] MEDS: Carvedilol 3.125 MG TAB PO SCH ×2 (08:19→17:27)
[2023-02-20] MEDS ORDERED: FLU VACC QS2023-24(6MOS UP)/PF 60 MCG/0.5 ML SYRINGE IM ONE ×2 (09:00→17:14)
[2023-02-20] MEDS ORDERED: Sertraline 25 MG TAB PO SCH (09:00)
[2023-02-20] MEDS ORDERED: Famotidine 20 MG TAB PO SCH (09:00)
[2023-02-20] MEDS ORDERED: Methotrexate Sodium 2.5 MG TAB PO SCH (09:00)
[2023-02-20] MEDS ORDERED: ADALIMUMAB 40 MG/0.8 ML SC SCH (09:00)
[2023-02-20 13:26] VITALS: TEMP 97.5
[2023-02-20 13:48] LABS: SARS-CoV-2 NAA Rapid Test Not Detected (NotDetected)
[2023-02-20] MEDS ORDERED: Azithromycin 250 MG TAB PO SCH (16:30)
[2023-02-20 17:42] VITALS: BP 166/91
[2023-02-20] MEDS ORDERED: Losartan 25 MG TAB PO SCH (21:00)
[2023-02-20] MEDS ORDERED: cefTRIAXone\\ROCEPHIN 1 GM in Sodium Chloride 0.9% 100 ML IVPB SCH (21:00)
[2023-02-20] MEDS ORDERED: Rosuvastatin 20 MG TAB PO SCH (21:00)
== END 2023-02-20 17:47 | disposition home or self-care (01) ==
LOC: ERS 21:07 → T4-A 22:55
PROVIDERS: ADMIT Student in an Organized Health Care Education/Training Program; ATTEND Family Medicine
DX: J18.9 Pneumonia, unspecified organism (principal); R07.81 Pleurodynia; E03.9 Hypothyroidism, unspecified; I11.0 Hypertensive heart disease with heart failure; I50.9 Heart failure, unspecified; M06.9 Rheumatoid arthritis, unspecified; E87.6 Hypokalemia; Z88.5 Allergy status to narcotic agent; Z88.8 Allergy status to other drugs, medicaments and biological substances; Z88.0 Allergy status to penicillin; Z91.030 Bee allergy status; Z79.890 Hormone replacement therapy; Z90.49 Acquired absence of other specified parts of digestive tract; Z79.899 Other long term (current) drug therapy
CPT/HCPCS: 36415; 71045; 71275; 80048; 80053; 81001; 83605; 83880; 84484; 85025; 87040; 90471; 90686; 93005; 96365; 96367; 96375; G0008; G0378; J0456; J0696; J1885; J7050; J7620; Q9967

== ENCOUNTER 2023-05-02 07:41 | Emergency (ER) | payer OTHER ==
[2023-05-02] MEDS ORDERED: Morphine 4 MG/ML VIAL ONE (07:59)
[2023-05-02] MEDS ORDERED: Ondansetron PF 4 MG/2 ML Vial ONE (07:59)
[2023-05-02 08:09] LABS: #Eosinphils 0.1 thou/uL (0.0-0.7); #Monocytes 0.8 thou/uL (0.11-0.59); #Neutrophils 11.6 thou/uL (1.40-6.50); %Basophils 0.2 % (0.0-1.0); %Eosinophils 0.6 % (0.0-10.0); %Lymphocytes 3.7 % (21.0-51.0); %Neutrophils 89.2 % (42.0-75.0); Hematocrit 41.4 % (36.0-47.0); Hemoglobin 14.4 g/dL (12.0-16.0); Mean Corpuscular HGB CONC 34.8 g/dL (32.0-36.0); Mean Corpuscular Hemoglobin 31.6 pg (27.0-31.0); Platelet Count 273 10x3/uL (130-400); RBC Distribution Width 12.5 % (11.5-14.5); Red Blood Cell (RBC) Count 4.55 mill/uL (4.20-5.40)
[2023-05-02 08:33] LABS: ALT (SGPT) 21 U/L (8-55); AST (SGOT) 22 U/L (5-34); Albumin 4.6 g/dL (3.4-4.8); Alkaline Phosphatase 114 U/L (40-110); Anion Gap 15 mmol/L (10-20); BUN (Urea Nitrogen) 29 mg/dL (9.8-20.1); Bilirubin, Total 0.7 mg/dL (0.2-1.2); Calc. Creatinine Clearance 0 mL/min (70-130); Calcium 9.5 mg/dL (7.8-10.44); Carbon Dioxide 20 mmol/L (23-31); Chloride 109 mmol/L (98-107); Estimated GFR 51; Globulin 3.8 g/dL (2.4-3.5); Glucose 193 mg/dL (80-115); Lipase 27 U/L (8-78); Potassium 4.3 mmol/L (3.5-5.1); Protein, Total 8.4 g/dL (5.8-8.1); Sodium 140 mmol/L (136-145)
[2023-05-02] MEDS ORDERED: Iopamidol-370 76% 500 ML MDV (1 ML CHARGE) ONE (09:07)
== END 2023-05-02 10:00 | disposition home or self-care (01) ==
LOC: ERS 07:41
DX: R10.9 Unspecified abdominal pain (principal); I11.0 Hypertensive heart disease with heart failure; I50.9 Heart failure, unspecified
CPT/HCPCS: 71045; 74177; 80053; 83605; 83690; 85025; 87040; 93005; 96374; 96375; J2270; J2405; Q9967

== ENCOUNTER 2023-07-13 09:58 | Inpatient (IN) | payer OTHER ==
[2023-07-13 10:40] LABS: Actual Bicarbonate (HCO3v) 23.8 mEq/L (22-28); Base Excess -1.3 mEq/L (-2.0 to +3.0); Calcium, Ionized (venous) 1.13 mmol/L (1.16-1.32); Chloride (VBG) 106 mmol/L (98-106); Hematocrit-VBG 43 % (36.0-47.0); Hemoglobin (Hb) 14.5 g/dL (11.7-16.0); Potassium (VBG) 4.14 mmol/L (3.70-5.30); Sodium 141 mmol/L (133-146); pH (venous) 7.379 (7.32-7.43)
[2023-07-13 10:44] LABS: #Eosinphils 0.2 thou/uL (0.0-0.7); #Monocytes 0.9 thou/uL (0.11-0.59); #Neutrophils 2.2 thou/uL (1.40-6.50); %Basophils 0.8 % (0.0-1.0); %Eosinophils 2.8 % (0.0-10.0); Hematocrit 41.2 % (36.0-47.0); Hemoglobin 13.8 g/dL (12.0-16.0); Mean Corpuscular HGB CONC 33.5 g/dL (32.0-36.0); Mean Corpuscular Volume 95.6 fl (78.0-98.0); Mean Platelet Volume 9.6 fL (7.4-10.4); Platelet Count 299 10x3/uL (130-400); RBC Distribution Width 15.2 % (11.5-14.5); Red Blood Cell (RBC) Count 4.31 mill/uL (4.20-5.40); White Blood Cell (WBC) Count 5.3 10x3/uL (4.8-10.8)
[2023-07-13 10:54] LABS: Bacteria/HPF None Seen HPF (None Seen); Bilirubin Negative (Negative); Blood, Urine Negative (Negative); CAUTI Indications for Culture Alt mental st,lethar; Clarity Clear (Clear); Glucose, Urine (Dipstick) Normal (Negative); Ketone, Urine Negative (Negative); Leukocyte Negative Leu/uL (Negative); Nitrite Negative (Negative); Protein, Urine (Dipstick) Negative (Neg-Trace); RBC/HPF 0-3 HPF (0-3); Squamous Epithelial 0-3 HPF (0-3); WBC/HPF 0-3 HPF (0-3)
[2023-07-13 10:58] LABS: Urine Culture Reflex No No
[2023-07-13 11:06] LABS: Amphetamine Not Detected (NotDetected); Barbiturates Screen Not Detected (NotDetected); Benzodiazepine Screen Not Detected (NotDetected); Cocaine Metabolite Screen Not Detected (NotDetected); Methadone Not Detected (NotDetected); Methamphetamine Not Detected (NotDetected); Opiate Screen Not Detected (NotDetected); Oxycodone Screen Not Detected (NotDetected); Phencyclidine (PCP) Not Detected (NotDetected); THC/Cannabinoid Screen Not Detected (NotDetected); Tricyclic Screen Not Detected (NotDetected)
[2023-07-13 11:06] LABS: ALT (SGPT) 19 U/L (8-55); AST (SGOT) 18 U/L (5-34); Albumin 4.3 g/dL (3.4-4.8); Alkaline Phosphatase 101 U/L (40-110); Anion Gap 11 mmol/L (10-20); BUN (Urea Nitrogen) 19 mg/dL (9.8-20.1); Bilirubin, Total 0.5 mg/dL (0.2-1.2); Calc. Creatinine Clearance 0 mL/min (70-130); Calcium 9.7 mg/dL (7.8-10.44); Carbon Dioxide 24 mmol/L (23-31); Chloride 107 mmol/L (98-107); Estimated GFR 51; Globulin 3.6 g/dL (2.4-3.5); Glucose 95 mg/dL (80-115); Lipase 32 U/L (8-78); Potassium 4.1 mmol/L (3.5-5.1); Protein, Total 7.9 g/dL (5.8-8.1); Sodium 138 mmol/L (136-145)
[2023-07-13 11:07] LABS: Troponin I Less than 0.010 ng/mL (< 0.028)
[2023-07-13 11:07] LABS: Acetaminophen Less than 10 mcg/mL (10.0-30.0); Alcohol Less than 10.0 mg/dL (Less than 10); Magnesium 2.2 mg/dL (1.6-2.6); Salicylate Less than 8.0 mg/dL (15.0-30.0)
[2023-07-13] MEDS ORDERED: Ondansetron PF 4 MG/2 ML Vial ONE (11:13)
[2023-07-13] MEDS ORDERED: Ondansetron ODT 4 MG TAB PO PRN (12:40)
[2023-07-13] MEDS ORDERED: Senokot S 8.6-50 MG TAB PO PRN (12:40)
[2023-07-13] MEDS ORDERED: LORazepam 2 MG/ML SYR.(CARPUJECT) ONE (12:58)
[2023-07-13 14:23] VITALS: BMI 28.7
[2023-07-13] MEDS: Lorazepam 1 MG TAB PO SCH (14:34)
[2023-07-13] MEDS: Aspirin 81 mg Enteric Coated Tablet PO SCH (15:51)
[2023-07-13] MEDS: Acetaminophen 325 MG TAB PO PRN (15:52)
[2023-07-13] MEDS: Famotidine 20 MG TAB PO SCH (21:37)
[2023-07-13] MEDS: Atorvastatin Calcium 40 MG TAB PO SCH (21:38)
[2023-07-13] MEDS: Prochlorperazine Edisylate 10 MG in Sodium Chloride 0.9% 50 ML IVPB SCH (21:38)
[2023-07-13] MEDS: diphenhydrAMINE 50 MG/ML VIAL IVP SCH (21:38)
[2023-07-14 06:06] LABS: Cardiac Risk 7.5 (Less than 4.5)
[2023-07-14] MEDS: Aspirin 81 mg Enteric Coated Tablet PO SCH (08:39)
[2023-07-14 16:10] VITALS: TEMP 98.1
[2023-07-14 16:19] VITALS: BP 102/74
[2023-07-15] MEDS ORDERED: Venlafaxine HCl XR 75 MG CAP PO SCH (09:00)
== END 2023-07-14 17:20 | disposition home or self-care (01) | DRG 103 ==
LOC: ERS 09:58 → 2SE 13:51 → OBSVTOIN 07-14 14:37
PROVIDERS: ADMIT Internal Medicine; ATTEND Internal Medicine
DX: G43.009 Migraine without aura, not intractable, without status migrainosus (principal); I50.32 Chronic diastolic (congestive) heart failure; N17.9 Acute kidney failure, unspecified; I13.0 Hypertensive heart and chronic kidney disease with heart failure and stage 1 through stage 4 chronic kidney disease, or unspecified chronic kidney disease; N18.9 Chronic kidney disease, unspecified; F40.240 Claustrophobia; E03.9 Hypothyroidism, unspecified; M06.9 Rheumatoid arthritis, unspecified; E78.5 Hyperlipidemia, unspecified; H81.10 Benign paroxysmal vertigo, unspecified ear; Z88.1 Allergy status to other antibiotic agents; Z88.8 Allergy status to other drugs, medicaments and biological substances; Z79.899 Other long term (current) drug therapy; Z79.891 Long term (current) use of opiate analgesic
CPT/HCPCS: 36415; 36416; 70450; 70551; 71045; 80053; 80061; 80306; 80307; 81001; 82805; 83605; 83690; 83735; 83880; 84443; 84484; 85025; 93005; 93880; 96361; 96374; 96375; 96376; G0378; J0780; J1200; J2060; J2405

== ENCOUNTER 2023-11-10 17:11 | Inpatient (IN) | payer OTHER ==
[2023-11-10 17:57] LABS: #Basophils 0.03 10x3/uL (0.0-0.2); %Basophils 0.3 % (0.0-1.0); %Eosinophils 1.9 % (0.0-10.0); %Lymphocytes 24.7 % (21.0-51.0); %Monocytes 11.4 % (0.0-10.0); %Neutrophils 61.2 % (42.0-75.0); Hematocrit 38.6 % (36.0-47.0); Hemoglobin 12.9 g/dL (12.0-16.0); Mean Corpuscular HGB CONC 33.4 g/dL (32.0-36.0); Mean Corpuscular Hemoglobin 33.3 pg (27.0-31.0); Mean Corpuscular Volume 99.7 fL (78.0-98.0); Mean Platelet Volume 9.6 fL (7.4-10.4); Platelet Count 298 10x3/uL (130-400); RBC Distribution Width 14.9 % (11.5-14.5); Red Blood Cell (RBC) Count 3.87 mill/uL (4.20-5.40)
[2023-11-10 18:12] LABS: ALT (SGPT) 20 U/L (8-55); AST (SGOT) 27 U/L (5-34); Albumin 4.2 g/dL (3.4-4.8); Alkaline Phosphatase 91 U/L (40-110); Anion Gap 14 mmol/L (10-20); BUN (Urea Nitrogen) 12 mg/dL (9.8-20.1); Bilirubin, Total 0.4 mg/dL (0.2-1.2); Calc. Creatinine Clearance 0 mL/min (70-130); Calcium 9.7 mg/dL (7.8-10.44); Carbon Dioxide 22 mmol/L (23-31); Chloride 107 mmol/L (98-107); Estimated GFR 57; Glucose 101 mg/dL (80-115); PTT 25.2 sec (22.9-36.1); Potassium 4.2 mmol/L (3.5-5.1); Protein, Total 8.2 g/dL (5.8-8.1); Prothrombin Time 12.9 sec (12.0-14.7); Sodium 139 mmol/L (136-145)
[2023-11-10] MEDS ORDERED: Tenecteplase 50 MG ONE (18:13)
[2023-11-10 18:17] LABS: Troponin I Less than 0.010 ng/mL (< 0.028)
[2023-11-10] MEDS ORDERED: Acetaminophen 650 MG Suppository PR PRN (19:36)
[2023-11-10] MEDS ORDERED: hydrALAZINE 20 MG/ML VIAL SLOW IVP PRN (19:36)
[2023-11-10] MEDS ORDERED: niCARdipine 25 MG in Sodium Chloride 0.9% 250 ML 250 ML IVPB PRN (19:36)
[2023-11-10] MEDS ORDERED: Communication Order-Pharmacy FS SCH (19:36)
[2023-11-10] MEDS ORDERED: Labetalol HCl 100 MG/20 ML VIAL SLOW IVP PRN (19:36)
[2023-11-10] MEDS: Dextrose 5%-Lactated Ringers 1,000 ML IV SCH (20:19)
[2023-11-10] MEDS: Atorvastatin Calcium 40 MG TAB PO SCH (20:45)
[2023-11-10] MEDS: Acetaminophen 325 MG TAB PO PRN (20:46)
[2023-11-11] MEDS: traMADol HCl 50 MG TAB PO SCH (00:14)
[2023-11-11 01:38] VITALS: BMI 25.5
[2023-11-11] MEDS: traMADol HCl 50 MG TAB PO PRN (09:09)
[2023-11-11] MEDS: Levothyroxine Sodium 88 MCG TAB PO SCH ×2 (11:00→11:58)
[2023-11-11] MEDS: Sertraline 25 MG TAB PO SCH (11:58)
[2023-11-11 19:49] LABS: #Basophils Less than 0.03 10x3/uL (0.0-0.2); %Basophils 0.3 % (0.0-1.0); %Eosinophils 3.8 % (0.0-10.0); %Lymphocytes 24.7 % (21.0-51.0); %Neutrophils 57.9 % (42.0-75.0); Hematocrit 38.4 % (36.0-47.0); Hemoglobin 12.5 g/dL (12.0-16.0); Mean Corpuscular HGB CONC 32.6 g/dL (32.0-36.0); Mean Corpuscular Hemoglobin 32.7 pg (27.0-31.0); Mean Corpuscular Volume 100.5 fL (78.0-98.0); Mean Platelet Volume 9.6 fL (7.4-10.4); Platelet Count 278 10x3/uL (130-400); RBC Distribution Width 15.1 % (11.5-14.5); Red Blood Cell (RBC) Count 3.82 mill/uL (4.20-5.40)
[2023-11-11 20:03] LABS: Hemoglobin A1c 5.7 % (4.0-6.0)
[2023-11-11 20:07] LABS: Anion Gap 13 mmol/L (10-20); BUN (Urea Nitrogen) 12 mg/dL (9.8-20.1); Calc. Creatinine Clearance 62 mL/min (70-130); Calcium 9.3 mg/dL (7.8-10.44); Carbon Dioxide 26 mmol/L (23-31); Cardiac Risk 3.9 (Less than 4.5); Chloride 103 mmol/L (98-107); Cholesterol 120 mg/dl (< 200 Desired); Estimated GFR 64; Glucose 137 mg/dL (80-115); HDL Cholesterol 31 mg/dL (>60 Neg Risk); LDL Cholesterol, Calculated 17 mg/dL; Potassium 4.7 mmol/L (3.5-5.1); Sodium 137 mmol/L (136-145); Triglycerides 359 mg/dL (Less than 150)
[2023-11-12 04:21] LABS: #Basophils 0.05 10x3/uL (0.0-0.2); %Basophils 0.6 % (0.0-1.0); %Lymphocytes 23.2 % (21.0-51.0); %Monocytes 17.5 % (0.0-10.0); %Neutrophils 53.9 % (42.0-75.0); Hematocrit 38.8 % (36.0-47.0); Hemoglobin 12.8 g/dL (12.0-16.0); Mean Corpuscular Hemoglobin 32.1 pg (27.0-31.0); Mean Corpuscular Volume 97.2 fL (78.0-98.0); Mean Platelet Volume 9.5 fL (7.4-10.4); Platelet Count 284 10x3/uL (130-400); Red Blood Cell (RBC) Count 3.99 mill/uL (4.20-5.40)
[2023-11-12 04:43] LABS: Anion Gap 11 mmol/L (10-20); BUN (Urea Nitrogen) 10 mg/dL (9.8-20.1); Calc. Creatinine Clearance 65 mL/min (70-130); Calcium 9.4 mg/dL (7.8-10.44); Carbon Dioxide 26 mmol/L (23-31); Chloride 105 mmol/L (98-107); Estimated GFR 68; Glucose 107 mg/dL (80-115); Potassium 4.2 mmol/L (3.5-5.1); Sodium 138 mmol/L (136-145)
[2023-11-12] MEDS: Folic Acid 1 MG TAB PO SCH (08:44)
[2023-11-12] MEDS: Sertraline 25 MG TAB PO SCH (09:41)
[2023-11-12] MEDS: Lorazepam 2 MG/ML VIAL SLOW IVP SCH (11:00)
[2023-11-13 05:41] LABS: #Basophils 0.04 10x3/uL (0.0-0.2); %Basophils 0.5 % (0.0-1.0); %Eosinophils 3.8 % (0.0-10.0); %Lymphocytes 23.9 % (21.0-51.0); %Monocytes 14.9 % (0.0-10.0); %Neutrophils 56.5 % (42.0-75.0); Hematocrit 39.7 % (36.0-47.0); Mean Corpuscular HGB CONC 32.7 g/dL (32.0-36.0); Mean Corpuscular Hemoglobin 31.5 pg (27.0-31.0); Mean Corpuscular Volume 96.1 fL (78.0-98.0); Mean Platelet Volume 10.1 fL (7.4-10.4); Platelet Count 300 10x3/uL (130-400); RBC Distribution Width 15.1 % (11.5-14.5); Red Blood Cell (RBC) Count 4.13 mill/uL (4.20-5.40)
[2023-11-13] MEDS: Levothyroxine Sodium 88 MCG TAB PO SCH (05:43)
[2023-11-13 05:48] LABS: Anion Gap 15 mmol/L (10-20); BUN (Urea Nitrogen) 12 mg/dL (9.8-20.1); Calc. Creatinine Clearance 76 mL/min (70-130); Calcium 9.4 mg/dL (7.8-10.44); Carbon Dioxide 20 mmol/L (23-31); Chloride 108 mmol/L (98-107); Estimated GFR 82; Glucose 96 mg/dL (80-115); Potassium 3.8 mmol/L (3.5-5.1); Sodium 139 mmol/L (136-145)
[2023-11-13] MEDS: Fenofibrate 48 MG TAB PO SCH (09:57)
[2023-11-13 12:50] VITALS: BP 110/73; TEMP 98
== END 2023-11-13 14:40 | disposition home or self-care (01) | DRG 62 ==
LOC: ERS 17:11 → CCU 18:43 → 2SE 11-12 14:47
PROVIDERS: ADMIT Student in an Organized Health Care Education/Training Program; ATTEND Internal Medicine
DX: I63.9 Cerebral infarction, unspecified (principal); G81.91 Hemiplegia, unspecified affecting right dominant side; I50.32 Chronic diastolic (congestive) heart failure; M06.9 Rheumatoid arthritis, unspecified; I11.0 Hypertensive heart disease with heart failure; E03.9 Hypothyroidism, unspecified; E78.5 Hyperlipidemia, unspecified; R29.710 NIHSS score 10; G43.909 Migraine, unspecified, not intractable, without status migrainosus; Z88.5 Allergy status to narcotic agent; Z88.8 Allergy status to other drugs, medicaments and biological substances; Z91.030 Bee allergy status; Z88.0 Allergy status to penicillin; Z79.899 Other long term (current) drug therapy; Z79.890 Hormone replacement therapy; Z90.49 Acquired absence of other specified parts of digestive tract
CPT/HCPCS: 36415; 36416; 70450; 70496; 70498; 70551; 71045; 80048; 80053; 80061; 83036; 84484; 85025; 85610; 85730; 93005; 93306; 96374; J2060; J3101; Q9967

== ENCOUNTER 2024-05-03 14:58 | Outpatient (CLI) | payer OTHER | END 2024-05-03 14:59 | disposition home or self-care (01) | LOC: BICMAMMO 14:58 | PROVIDERS: ATTEND Family Medicine | DX: N63.21 Unspecified lump in the left breast, upper outer quadrant (principal); N64.89 Other specified disorders of breast | CPT/HCPCS: G0279 ==

== ENCOUNTER 2024-05-15 14:12 | Emergency (ER) | payer OTHER ==
[2024-05-15 15:24] LABS: #Basophils Less than 0.03 10x3/uL (0.0-0.2); %Basophils 0.3 % (0.0-1.0); %Eosinophils 4.2 % (0.0-10.0); %Lymphocytes 20.6 % (21.0-51.0); %Monocytes 6.2 % (0.0-10.0); %Neutrophils 68.2 % (42.0-75.0); Hematocrit 34.2 % (36.0-47.0); Hemoglobin 11.3 g/dL (12.0-16.0); Mean Corpuscular Hemoglobin 32.3 pg (27.0-31.0); Mean Corpuscular Volume 97.7 fL (78.0-98.0); Platelet Count 305 10x3/uL (130-400); RBC Distribution Width 14.2 % (11.5-14.5)
[2024-05-15 15:39] LABS: ALT (SGPT) 29 U/L (8-55); AST (SGOT) 27 U/L (5-34); Albumin 3.9 g/dL (3.4-4.8); Alkaline Phosphatase 83 U/L (40-110); Anion Gap 12 mmol/L (10-20); BUN (Urea Nitrogen) 11 mg/dL (9.8-20.1); Bilirubin, Total 0.4 mg/dL (0.2-1.2); Calc. Creatinine Clearance 0 mL/min (70-130); Calcium 9.1 mg/dL (7.8-10.44); Carbon Dioxide 25 mmol/L (23-31); Chloride 112 mmol/L (98-107); Estimated GFR 51; Globulin 3.2 g/dL (2.4-3.5); Glucose 110 mg/dL (80-115); Potassium 4.2 mmol/L (3.5-5.1); Protein, Total 7.1 g/dL (5.8-8.1); Sodium 145 mmol/L (136-145)
[2024-05-15 15:43] LABS: Troponin I Less than 0.010 ng/mL (< 0.028)
== END 2024-05-15 17:58 | disposition home or self-care (01) ==
LOC: ERS 14:12
DX: S39.012A Strain of muscle, fascia and tendon of lower back, initial encounter (principal); R07.89 Other chest pain; I11.0 Hypertensive heart disease with heart failure; I50.9 Heart failure, unspecified; X58.XXXA Exposure to other specified factors, initial encounter
CPT/HCPCS: 36415; 71045; 80053; 84484; 85025; 93005

== ENCOUNTER → 2024-06-02 | Day surgery (SDC) | payer OTHER | LOC: BICULT 12:44 | PROVIDERS: ATTEND Family Medicine | PROC: 0HBU3ZX Excision of Left Breast, Percutaneous Approach, Diagnostic (ICD-10-PCS; principal; 2024-06-02) | DX: N64.89 Other specified disorders of breast (principal); Z88.0 Allergy status to penicillin; Z88.8 Allergy status to other drugs, medicaments and biological substances; Z88.5 Allergy status to narcotic agent; Z91.030 Bee allergy status | CPT/HCPCS: 19000; 19083; 88305 ==

== ENCOUNTER 2024-12-15 12:41 | Outpatient (CLI) | payer OTHER | END 2024-12-15 12:42 | disposition home or self-care (01) | LOC: RAD 12:41 | PROVIDERS: ATTEND Nurse Practitioner Family | DX: M25.571 Pain in right ankle and joints of right foot (principal) ==

== ENCOUNTER 2025-01-12 11:12 | Outpatient (CLI) | payer MEDICAID | END 2025-01-12 11:13 | disposition home or self-care (01) | LOC: BICRAD 11:12 | PROVIDERS: ATTEND Nurse Practitioner Family | DX: M47.816 Spondylosis without myelopathy or radiculopathy, lumbar region (principal) | CPT/HCPCS: 72100 ==

== ENCOUNTER 2025-04-22 10:53 | Inpatient (IN) | payer MEDICAID ==
[2025-04-22] MEDS ORDERED: Ondansetron PF 4 MG/2 ML Vial ONE (11:41)
[2025-04-22 12:06] LABS: #Basophils 0.03 10x3/uL (0.0-0.2); #Eosinophils 0.33 10x3/uL (0.0-0.7); #Monocytes 0.88 10x3/uL (0.11-0.59); #Neutrophils 5.30 10x3/uL (1.40-6.50); %Basophils 0.3 % (0.0-1.0); %Eosinophils 3.7 % (0.0-10.0); %Lymphocytes 27.3 % (21.0-51.0); %Monocytes 9.7 % (0.0-10.0); %Neutrophils 58.7 % (42.0-75.0); Hematocrit 40.7 % (36.0-47.0); Hemoglobin 13.7 g/dL (12.0-16.0); Mean Corpuscular Hemoglobin 31.4 pg (27.0-31.0); Mean Corpuscular Volume 93.1 fL (78.0-98.0); Platelet Count 348 10x3/uL (130-400); Red Blood Cell (RBC) Count 4.37 mill/uL (4.20-5.40); White Blood Cell (WBC) Count 9.04 10x3/uL (4.8-10.8)
[2025-04-22 12:17] LABS: ALT (SGPT) 48 U/L (Less than 34); AST (SGOT) 32 U/L (11-34); Albumin 4.2 g/dL (3.1-4.5); Alkaline Phosphatase 93 U/L (40-110); Anion Gap 15 mmol/L (10-20); BUN (Urea Nitrogen) 20 mg/dL (9.8-20.1); Bilirubin, Total 0.5 mg/dL (0.3-1.2); Calc. Creatinine Clearance 0 mL/min (70-130); Calcium 9.6 mg/dL (7.8-10.44); Carbon Dioxide 21 mmol/L (23-31); Chloride 109 mmol/L (98-107); Globulin 3.5 g/dL (2.4-3.5); Glucose 163 mg/dL (80-115); Potassium 4.3 mmol/L (3.5-5.1); Sodium 141 mmol/L (136-145)
[2025-04-22 13:06] LABS: INR-International Normal Ratio 1.0; PTT 27.8 sec (22.9-36.1); Prothrombin Time 12.9 sec (12.0-14.7)
[2025-04-22 13:08] LABS: Magnesium 1.7 mg/dL (1.6-2.6)
[2025-04-22] MEDS ORDERED: Dexamethasone 10 MG/ML VIAL ONE (13:21)
[2025-04-22] MEDS ORDERED: Aspirin 325 MG TAB ONE (16:28)
[2025-04-22] MEDS ORDERED: Glucagon 1 MG/ML KIT IM PRN (17:09)
[2025-04-22] MEDS ORDERED: Dextrose 50% Abboject 50 ML SYRINGE SLOW IVP PRN (17:09)
[2025-04-22] MEDS ORDERED: hydrALAZINE 20 MG/ML VIAL SLOW IVP PRN (17:09)
[2025-04-22] MEDS ORDERED: Senokot S 8.6-50 MG TAB PO PRN (17:09)
[2025-04-22 17:56] VITALS: BMI 24.6
[2025-04-22] MEDS: Famotidine 20 MG TAB PO SCH (20:24)
[2025-04-22] MEDS: Melatonin 3 MG TAB PO PRN (21:13)
[2025-04-23 04:28] LABS: #Basophils Less than 0.03 10x3/uL (0.0-0.2); #Eosinophils Less than 0.03 10x3/uL (0.0-0.7); #Monocytes 0.89 10x3/uL (0.11-0.59); #Neutrophils 8.09 10x3/uL (1.40-6.50); %Basophils 0.1 % (0.0-1.0); %Eosinophils 0.0 % (0.0-10.0); %Lymphocytes 13.6 % (21.0-51.0); %Monocytes 8.5 % (0.0-10.0); %Neutrophils 77.2 % (42.0-75.0); Hematocrit 38.3 % (36.0-47.0); Hemoglobin 12.1 g/dL (12.0-16.0); Mean Corpuscular Hemoglobin 30.9 pg (27.0-31.0); Mean Corpuscular Volume 97.7 fL (78.0-98.0); Platelet Count 333 10x3/uL (130-400); Red Blood Cell (RBC) Count 3.92 mill/uL (4.20-5.40); White Blood Cell (WBC) Count 10.48 10x3/uL (4.8-10.8)
[2025-04-23 04:48] LABS: Anion Gap 15 mmol/L (10-20); BUN (Urea Nitrogen) 23 mg/dL (9.8-20.1); Calc. Creatinine Clearance 51 mL/min (70-130); Calcium 9.6 mg/dL (7.8-10.44); Carbon Dioxide 22 mmol/L (23-31); Cardiac Risk 5.9 (Less than 4.5); Chloride 103 mmol/L (98-107); Cholesterol 218 mg/dl (< 200 Desired); Glucose 236 mg/dL (80-115); HDL Cholesterol 37 mg/dL (>60 Neg Risk); LDL Cholesterol, Calculated 134 mg/dL; Potassium 5.3 mmol/L (3.5-5.1); Sodium 135 mmol/L (136-145); Triglycerides 236 mg/dL (Less than 150)
[2025-04-23] MEDS: Ketorolac Tromethamine 30 MG (1 mL) VIAL IVP PRN (09:30)
[2025-04-23] MEDS: Enoxaparin 40 MG (0.4 mL) SYRINGE SC SCH (09:33)
[2025-04-23] MEDS: Aspirin 81 mg Enteric Coated Tablet PO SCH (09:34)
[2025-04-23] MEDS: metFORMIN 500 MG TAB PO SCH (09:34)
[2025-04-23] MEDS: Carvedilol 6.25 MG TAB PO SCH (09:34)
[2025-04-23] MEDS ORDERED: Iopamidol-370 76% 500 ML MDV (1 ML CHARGE) ONE (10:14)
[2025-04-23 13:19] LABS: Anion Gap 17 mmol/L (10-20); BUN (Urea Nitrogen) 27 mg/dL (9.8-20.1); Calc. Creatinine Clearance 52 mL/min (70-130); Calcium 9.5 mg/dL (7.8-10.44); Carbon Dioxide 20 mmol/L (23-31); Chloride 106 mmol/L (98-107); Glucose 214 mg/dL (80-115); Potassium 4.7 mmol/L (3.5-5.1); Sodium 138 mmol/L (136-145)
[2025-04-23] MEDS: Chlorhexidine Gluconate 15 ML UDCUP SSP SCH (14:38)
[2025-04-23] MEDS: Amoxicillin/Potassium Clav 875 MG TAB PO SCH (20:34)
[2025-04-23] MEDS: Ibuprofen 600 MG TAB PO SCH (21:42)
[2025-04-24] MEDS ORDERED: PHOS-NAK 1 PKT PACK PO PRN (02:15)
[2025-04-24] MEDS ORDERED: Potassium Chloride 20 MEQ in Premix 1 BAG IVPB PRN (02:15)
[2025-04-24] MEDS ORDERED: Magnesium Sulfate In Water 4 GM in Premix 1 BAG IVPB PRN (02:15)
[2025-04-24 04:32] LABS: ALT (SGPT) 38 U/L (Less than 34); AST (SGOT) 38 U/L (11-34); Albumin 3.7 g/dL (3.1-4.5); Alkaline Phosphatase 84 U/L (40-110); Anion Gap 15 mmol/L (10-20); BUN (Urea Nitrogen) 25 mg/dL (9.8-20.1); Bilirubin, Total 0.3 mg/dL (0.3-1.2); Calc. Creatinine Clearance 48 mL/min (70-130); Calcium 9.6 mg/dL (7.8-10.44); Carbon Dioxide 24 mmol/L (23-31); Chloride 107 mmol/L (98-107); Globulin 3.3 g/dL (2.4-3.5); Glucose 153 mg/dL (80-115); Magnesium 2.0 mg/dL (1.6-2.6); Potassium 4.8 mmol/L (3.5-5.1); Sodium 141 mmol/L (136-145)
[2025-04-24] MEDS: Electrolyte Replacement Protocol 1 EACH FS ONE (07:31)
[2025-04-24] MEDS: Famotidine 20 MG TAB PO SCH (08:28)
[2025-04-24] MEDS: Acetaminophen 325 MG TAB PO PRN (08:34)
[2025-04-24 16:03] VITALS: TEMP 97.8
[2025-04-24 16:37] VITALS: BP 132/88
== END 2025-04-24 19:46 | disposition home or self-care (01) | DRG 69 ==
LOC: ERS 10:53 → 2SE 15:54 → OBSVTOIN 04-23 12:39
PROVIDERS: ADMIT Family Medicine; ATTEND Hospitalist
DX: G45.9 Transient cerebral ischemic attack, unspecified (principal); I50.32 Chronic diastolic (congestive) heart failure; H81.93 Unspecified disorder of vestibular function, bilateral; H55.00 Unspecified nystagmus; R20.2 Paresthesia of skin; K44.9 Diaphragmatic hernia without obstruction or gangrene; I11.0 Hypertensive heart disease with heart failure; M06.89 Other specified rheumatoid arthritis, multiple sites; K02.9 Dental caries, unspecified; G47.33 Obstructive sleep apnea (adult) (pediatric); F41.9 Anxiety disorder, unspecified; Z86.73 Personal history of transient ischemic attack (TIA), and cerebral infarction without residual deficits; Z98.890 Other specified postprocedural states; Z90.89 Acquired absence of other organs; Z90.49 Acquired absence of other specified parts of digestive tract; Z91.030 Bee allergy status; Z88.8 Allergy status to other drugs, medicaments and biological substances; Z88.5 Allergy status to narcotic agent; Z88.0 Allergy status to penicillin; Z79.899 Other long term (current) drug therapy; Z79.890 Hormone replacement therapy
CPT/HCPCS: 36415; 36416; 70487; 70496; 70498; 70551; 71045; 80048; 80053; 80061; 82607; 83036; 83735; 84439; 84443; 84484; 85025; 85610; 85730; 93005; 93010; 93306; 96372; 96374; 96375; 96376; G0378; J1100; J1650; J1885; J2270; J2272; J2405; Q9967